=== PATIENT | female | born 1960 | race Caucasian/White ===

== ENCOUNTER → 2023-07-19 06:24 | Outpatient (REF) | payer OTHER, SELFPAY | LOC: HWCARD 06:24 | PROVIDERS: ATTENDING PHYSICIAN Physician Assistant Medical | DX: R94.31 Abnormal electrocardiogram [ECG] [EKG] (principal) | CPT/HCPCS: 93005 ==

== ENCOUNTER 2023-08-10 16:59 | Inpatient (IN) | payer OTHER, SELFPAY ==
[2023-08-10] VITALS (10 sets, daily range): BP systolic 115–160; BP diastolic 45–121; BMI 32.2; BMI 31.7
[2023-08-10] MEDS: ZOFRAN 4 MG IV (15:54)
--- NOTE | 2023-08-10 16:05 | ED.GENMED ---
History of Present Illness
General
Chief Complaint: Dizziness
Source: patient and spouse
Exam Limitations: none
Time Seen by Provider: 08/10/23 15:19
Travel History
Have you had any contact with someone who has COVID-19?: No
Do you have any symptoms of coronavirus? Fever > 100 degrees, chills, cough, shortness of breath, sore throat, loss of taste or smell, muscle aches, or headache?: No
History of Present Illness
History of Present Illness:
At about 2 PM patient had sudden onset of dizziness and vertigo. No history of same. Somewhat positional in nature. No headache or other neurologic symptoms noted by the patient or .
Past History
Past History
ED Past Medical History: HTN, Hypercholesterolemia and Other (Congenital hearing loss)
ED Past Surgical History: Bowel resection (Partial colon removed due to Intussusception 2010) and ( x3)
Social History
Tobacco: Non-smoker
Alcohol: Occasional
Personal:
Living: with family
Family History
Family History: Negative Diabetes, Hypertension, Early CAD, Asthma or Cancer
Review of Systems
Review of Systems
All Other Systems: Not applicable
Respiratory: Reports no symptoms
Cardiac: Reports no symptoms
Phy Exam
Physical Exam
Physical Exam:
GENERAL: Alert and oriented in no apparent distress
EYE: Orbits normal. Extraocular muscles intact. No obvious nystagmus
NECK: Supple, no carotid bruit
ENT: Pharynx without erythema
CARDIAC: Regular rate and rhythm without any obvious murmurs.
LUNGS: Clear breath sounds,normal
ABDOMEN: Soft, without focal tenderness or distention
NEUROLOGICAL: Alert and oriented , cranial nerves II through XII intact. Light touch intact. Upper extremity strength normal. No drift. Consistent decreased right leg raising of the right lower leg however plantar dorsiflexion of the foot intact
SKIN: Warm and dry, no rash or lesion, no discoloration, skin intact.
MUSCULOSKELETAL: No edema,no deformity.Good color
PSYCH: Normal and appropriate interaction.
Course
Orders/Labs/Results
Orders:
Orders
08/10/23 15:26
CT Head W/o Cont STROKE ALERT Urgent
Comment:
Reason For Exam: Vertigo/right leg weakness
CT Head/Neck Ang STROKE ALERT Urgent
Comment:
Reason For Exam: Vertigo/right leg weakness
IV Insert/Care/Rem.- Treatment PRN
08/10/23 15:48
EKG [Electrocardiogram (*1)] Urgent
Reason for Study: Vertigo / Dizzy
EKG- Treatment ONCE
Ondansetron Injectable [Zofran] 4 mg IV NOW STA
08/10/23 15:49
Basic Metabolic Panel Urgent
Complete Blood Count/With Diff Urgent
08/10/23 16:34
Tenecteplase [Tnkase] 19 mg Syringe [Syringe Non-Pump] 0 ml IV NOW
Provider explained risk/benefits to patient &/or caregiver?: Yes
Blood pressure: 160/121
08/10/23 16:47
PTT Urgent
Prothrombin Time Urgent
Abnormal Lab Results
08/10/23
15:49
WBC 12.3 H 10^3/uL
(4.8-10.8)
Abs Immat Gran (auto) 0.1 H 10^3/uL
(0-0.05)
Absolute Neuts (auto) 8.7 H 10^3/uL
(1.4-6.5)
BUN 21 H mg/dl
(7-17)
Glucose 177 H mg/dl
(70-99)
08/10/23 15:49
08/10/23 15:49
Vital Signs
Initial and Last Documented VS:
Initial Vital Signs
Temp Pulse Resp BP Pulse Ox
98.2 F 70 16 160/121 96
08/10/23 14:07 08/10/23 14:07 08/10/23 14:07 08/10/23 14:07 08/10/23 14:07
Last Documented Vital Signs
Temp Pulse Resp BP Pulse Ox
97.7 F 70 18 144/68 97
08/10/23 19:20 08/10/23 19:20 08/10/23 19:20 08/10/23 19:20 08/10/23 19:20
*Pulse Oximetry
Patient hypoxic: no
*EKG
Interpreted by ED Provider?: Yes
Interpretation: abnormal
Comparison EKG: changes noted
Heart Rate: 75
Rate: normal
Rhythm: sinus
[place]: normal axis
Interval: normal interval
QRS Pattern: normal QRS
Ischemia: non-specific ST changes
*Utility Worker Driver Interpretation
Rate: normal
Interpretation: normal
Heart Rate: 75
Rhythm: sinus
*Critical Care Note
Total Time (30-74mins, 75-104mins- exclusive of procedures): 45
Update Note
Update Note:
1600... Seen post CT. CT head and CT angio negative. Patient still has some weakness in the right leg with straight leg raising however good strength with dorsi and plantarflexion. Awaiting neurologic evaluation. Doubt TN K patient
There were multiple lengthy discussions with the patient and family concerning management. Discussed with neurology and radiology. There was a. We were contemplating stat MRI. However did not feel this could be done in a expeditious enough
fashion to then give thrombolytics if that was decided. Therefore the decision for thrombolytics based on clinical findings. Family was very 50:50 on this decision. It was noted patient had improved movement of the right leg and after a lengthy
discussion we decided to hold off on thrombolytics. Risk benefit of therapy was reviewed multiple times
ED Attending Note
-
Portions of this chart may have been created with voice recognition software.� Occasional wrong word or��sound alike� substitutions may have occurred due to the inherent limitations of voice recognition software.
Discharge Plan
Departure
Patient Disposition: Admit
Date of Disposition: 08/10/23
Time of Disposition: 16:35
Presentation/result/management discussed w/ accepting MD/DO: Neurology
Discharge Problem:
Severe vertigo, Right leg weakness, Possible CVA
Interventions
Interventions:
*Risk Screen - Suicide Last Done: 08/10/23 15:35
*General Assessment Last Done: 08/10/23 14:07
*Neglect/Abuse Screening Last Done: 08/10/23 15:35
ED- Fall Risk Assessment Last Done: 08/10/23 19:44
*ED COVID-19 Vaccine History Last Done: 08/10/23 14:07
*Nursing Disposition Last Done: 08/10/23 19:44
ED- Neurological Assessment Last Done: 08/10/23 15:35
ED- Cardiac Assessment Last Done: 08/10/23 19:44
ED Swallowing Screen Last Done: 08/10/23 17:20
Discharge Date and Time
Discharge Date/Time: 08/10/23 19:47
[2023-08-10 16:09] LABS: % Basophils 0.5 % (0-2); % Eosinophils 1.4 % (0-6); % Immature Granulocytes 0.5 % (0-0.5); % Lymphocytes 21.8 % (20.5-51.1); % Monocytes 4.7 % (1.7-9.3); % Neutrophils 71.1 % (42.2-75.2); Absolute Basophils 0.1 10^3/uL (0-0.2); Absolute Eosinophils 0.2 10^3/uL (0-0.7); Absolute Immature Granulocytes 0.1 10^3/uL (0-0.05); Absolute Lymphocytes 2.7 10^3/uL (1.2-3.4); Absolute Monocytes 0.6 10^3/uL (0.1-0.6); Absolute Neutrophils 8.7 10^3/uL (1.4-6.5); Hemoglobin 13.6 g/dL (12.0-16.0); Mean Corpuscular Volume 88.3 fL (81.0-99.0); Nucleated Red Blood Cells % 0 %; Platelet Count 308 10^3/uL (130-400); Red Blood Cell Count 4.53 10^6/uL (4.20-5.40); Red Cell Dist. Width 12.4 % (11.5-14.5); White Blood Cell Count 12.3 10^3/uL (4.8-10.8)
[2023-08-10 16:48] LABS: Blood Urea Nitrogen 21 mg/dl (7-17); Calcium 9.2 mg/dl (8.4-10.2); Carbon Dioxide 23 mmol/L (22-30); Chloride 106 mmol/L (98-107); Estimated Creatinine Clearance 57 ml/min; Glucose 177 mg/dl (70-99); Potassium 3.9 mmol/L (3.5-5.1); Sodium 137 mmol/L (135-145); eGFR > 60.00
[2023-08-10 17:12] LABS: INR 1.06; PT 13.6 Sec (11.4-14.6)
[2023-08-10 17:13] LABS: APTT 26.9 Sec (23.4-35.0)
--- NOTE | 2023-08-10 17:39 | HPS.HSE ---
Family Physician
-
Family Physician: Rekha Sommers PA-C
Chief Complaint
-
Dizziness
History of Present Illness
This is a 62-year-old female with past medical history of bilateral deafness since childhood, was arthritis status post right total knee arthroplasty, hypertension and hyperlipidemia presenting to the emergency department with acute onset of vertigo.
Patient apparently was in usual state of health up until this event without any symptoms whatsoever. This morning prior to coming to the emergency department while she was busy forming a daily home activities she suddenly cried out to her
complaining of dizziness, ataxia, blurry vision, and discomfort over right ear. She started vomiting due to dizziness. She stated that it felt the room was spinning around her and she was barely able to stand up. Was found to have supported her
and brought her to the emergency department.
Patient had a recent Abdominal surgery about 4 days ago. Otherwise has been asymptomatic. She denies any prior history of CVA, CAD, palpitations lightheadedness or dizziness. She denies any recent cough cold or flulike symptoms. Has been no
recent travels or sick contacts. She denies any recent episodes of weakness, numbness.
On arrival in the emergency department in addition to the nausea and vertigo symptoms patient was found to have the right lower extremity with some more difficulty raising the right leg compared to the left. She was in the window for TNK and this
was considered given concern for central vertigo with right-sided weakness. Show BP was elevated at 160/121 with vitals otherwise stable. CT of the head was negative for any bleed or acute stroke. CT angio showed no obstruction of the major
vessels. No mass effect noted. ECG with normal sinus rhythm at a rate of [address] or T wave changes. Her chemistries were unremarkable. CBC also unremarkable.
On repeat evaluation after obtaining the imaging studies the patient weakness improved markedly. He had no other focal neurological abnormalities. TNK was not administered and patient was then referred for telemetry admission.
Medical History
Past Medical History
Past Medical History: Reports HTN and Hypercholesterolemia
Past Surgical History: Reports Orthopedic
Social History
Unable to obtain full social history at this time due to: Other (deafness)
Tobacco: Non-smoker
Alcohol: Occasional
Drug: None
Personal:
Living: With Family
Employment: Disabled
Family History
Family History: Not pertinent
Allergies / Home Medications
Allergies reflects when Allergies were last updated in [facility].
Home Medications with original date entered in [facility]
Allergy/Medication List:
Allergies
Allergy/AdvReac Type Severity Reaction Status Date / Time
No Known Allergies Allergy Verified 08/10/23 14:11
Home Medications
acetaminophen 500 mg tablet (Tylenol Extra Strength) 500 mg PO DAILYPRN PRN mild pain 08/10/23
atorvastatin 20 mg tablet 20 mg PO DAILY 08/10/23
triamterene 37.5 mg-hydrochlorothiazide 25 mg tablet 1 tab PO QPM 08/10/23
Review of Systems
-
History Source: Patient and Family
Constitutional: Reports No Symptoms
EENT: Reports No Symptoms
Respiratory: Reports No Symptoms
Cardiac: Reports No Symptoms
Abdomen/GI: Reports No Symptoms
: Reports No Symptoms
Musculoskeletal: Reports No Symptoms
Skin: Reports No Symptoms
Neurological: Reports Dizzy
Endocrine: Reports No Symptoms
Hematologic/Lymphatic: Reports No Symptoms
Psych: Reports No Symptoms
Physical Exam
Vital Signs
Vital Signs
Temp Pulse Resp BP Pulse Ox
98.2 F 69 19 156/68 98
08/10/23 14:07 08/10/23 16:45 08/10/23 16:45 08/10/23 16:37 08/10/23 16:45
Physical Exam
General: Well Developed, Well Nourished and Appears in Distress
HEENT: NormoCephalic, Anicteric, Moist mucous membranes, Atraumatic, PERRLA and Neck Nontender
Respiratory: Clear
Cardiac: S1/S2 and Regular Rhythm
Breast: Deferred by me
GI: Soft
Rectal: Deferred by Provider
Genito-urinary: Deferred by me
Musculoskeletal: No Clubbing, No Cyanosis and No Edema
Skin: Warm and Dry
Neuro: AO x 3
Hematologic/Lymphatic: No Lymphadenopathy
Psych: Calm
Laboratory Results
-
08/10/23 15:49
08/10/23 15:49
Laboratory Results
PT 13.6 Sec (11.4-14.6) 08/10/23 16:47
INR 1.06 08/10/23 16:47
APTT 26.9 Sec (23.4-35.0) 08/10/23 16:47
Data Reviewed
-
CT Scan: Report Reviewed by me
Medical Tests (Nuc Med, Echo, EKG etc): Image Personally Visualized and interpreted
Lab Data: Labs Reviewed by me
Old Records: Reviewed
Impression/Plan
-
IMPRESSION:
PLAN:
1. Dizziness - Vertigo with concern for possible central cause. On my exam she had no new focal deficit. Strength was 5/5 in upper and lower extremities bilaterally with very mild weakness on the right relative to left. Sensation was normal.
CT head, CTA negative. Improving exam so not a candidate for TNK. Suspect BPPV given acute onset and severity of symptom without antecedent illness. Cannot rule out central vertigo entirely. Admitting for possible CVA. She passed the swallowing
eval. NIHSS = 0.
- telemetry and neurochecks q6.
- d/w neuro, given aspirin 325 and plavix 75 x 1 for now. To continue pending further testing
- continue home statin and bp medications
- echo in am
- cardiac labs and tsh in am
- mri w/o contrast urgent. If negative can attempt Nellie
- prn meclizine for now
- prn antiemetics
- neurology consulted and notified.
DVT PPX
[2023-08-10] MEDS: REGLAN 10 MG IV (17:44)
[2023-08-10] MEDS: ANTIVERT 25 MG PO (17:45)
[2023-08-10] MEDS: PLAVIX 75 MG PO (17:45)
[2023-08-10] MEDS: ASPIRIN 325 MG PO (17:45)
[2023-08-10] MEDS: LOVENOX 40 MG SC (20:34)
[2023-08-10] MEDS: LIPITOR 40 MG PO ×2 (20:34→22:53)
--- NOTE | 2023-08-10 21:34 | CON.NEURO4 ---
Consultation - Neurology 4
-
CONSULTING PHYSICIAN: Dr. Vargas
REFERRING PHYSICIAN: Dr. Harris
DICTATED BY: Dr. Vargas
DATE/TIME OF REQUEST: 08/10/23
DATE/TIME OF CONSULTATION: 08/10/23
Reason for Consultation: stroke alert
History of Present Illness:
62 year-old female with a history of htn, HLD and congenital hearing loss who is deaf and reads lips who presented to the ED after abrupt onset of severe vertigo with RLE weakness and RLE coordination difficulty that began suddenly at 1:45pm. No
prior history of stroke or vertigo. Initially radiology was called to facilitate stat MRI to clarify diagnosis as family was undecided regarding giving TNK; then MRI was cancelled as family agreed to TNK. However, family remained hesitant and her
symptoms greatly improved so TNK ultimately was not given. CTA was negative for any clot.
Past Medical History: htn, HLD, congenital hearing loss
Surgical History: bowel resection--partial colon resection due to intussusception in 2010; Csection x 3, R knee surgery
Family History: no clear family history of stroke
Social History: nonsmoker, occasional ETOH, , lives with family
Home Medications
Medication Instructions Recorded
acetaminophen 500 mg tablet 500 mg PO DAILYPRN PRN mild pain 08/10/23
(Tylenol Extra Strength)
atorvastatin 20 mg tablet 20 mg PO DAILY 08/10/23
cyanocobalamin (vitamin B-12) 1 tab PO .SEE BELOW 08/10/23
ibuprofen 200 mg tablet (Advil) 800 mg PO BIDPRN PRN mild pain 08/10/23
magnesium 1 tab PO .SEE BELOW 08/10/23
polyvinyl alcohol 1.4 % eye drops 1 drp BOTH EYES QID 08/10/23
triamterene 37.5 1 tab PO QPM 08/10/23
mg-hydrochlorothiazide 25 mg tablet
Allergies
No Known Allergies Allergy (Verified 08/10/23 14:11)
Review of Symptoms:
Patient denies any fever, headache, chest pain, shortness of breath, GI or symptoms.
�Per the HPI.�All systems are reviewed negative except above.
Vital Signs
Temp Pulse Resp BP Pulse Ox
97.7 F 70 18 144/68 97
08/10/23 19:20 08/10/23 19:20 08/10/23 19:20 08/10/23 19:20 08/10/23 19:20
Lab Results
08/10/23 15:49
08/10/23 15:49
PT 13.6 Sec (11.4-14.6) 08/10/23 16:47
INR 1.06 08/10/23 16:47
APTT 26.9 Sec (23.4-35.0) 08/10/23 16:47
Sodium 137 mmol/L (135-145) 08/10/23 15:49
Potassium 3.9 mmol/L (3.5-5.1) 08/10/23 15:49
BUN 21 mg/dl (7-17) H 08/10/23 15:49
Glucose 177 mg/dl (70-99) H 08/10/23 15:49
Calcium 9.2 mg/dl (8.4-10.2) 08/10/23 15:49
Physical Exam:
The patient is afebrile, heart sounds S1 and S2 are regular, and chest is clear to auscultation bilaterally.
NIH Stroke Scale :
I performed the NIH stroke scale on the patient on 08/10/23--my initial evaluation. The patient scored 3 points on the NIH stroke scale assessment, which were assigned as follows: 2 for motor function in RLE and 1 for RLE limb ataxia.
Neurologic Examination:
The patient is awake, alert and oriented x 3. and daughter provided assistance using sign language as she is deaf. She is able to follow commands and answer questions appropriately. No clear aphasia per family; unable to assess for
dysarthria. On cranial nerve assessment, pupils are 3 mm bilateral, round and reactive to light and accommodation. Visual mad[place] are full. Extraocular movements are intact. Facial sensations are intact and bilaterally symmetrical, there is no facial
asymmetry. Hearing is intact bilaterally to normal conversation volume. Tongue palate and uvula are midline. Sternocleidomastoid strengths are full bilaterally. Motor strengths are 4/5 in RLE, otherwise full strength. There is no drift or
involuntary movement noted. Deep tendon reflexes are 2+ bilateral upper and lower extremities and Babinski is absent bilaterally. Sensations of pain, touch, temperature and vibration are intact and bilaterally symmetrical. There was no extinction
noted on double simultaneous stimulation. Coordination was impaired in the RLE with heel to franks but was otherwise intact.
Neuro Imaging:
HCT:
'1.. No acute intracranial abnormality noted.
2. Calcified extra-axial left frontal convexity mass measuring up to 2.8 cm, likely meningioma. No midline shift or herniation.'
CTA head/neck: 'No significant vascular occlusion, aneurysm or dissection.'
Impression:
TRAVON BANGURA is a 62 year old F who has presented to the hospital with severe vertigo, RLE weakness and RLE ataxia. Initially the patient's family agreed to TNK. However, the latter two symptoms eventually improved and then TNK was not given.
Differentials for the patient's presentation include:
1. small posterior circulation stroke--now improved.
2. BPPV with some baseline predisposition to RLE weakness s/p knee surgery
Patient has the following risk factors for their symptoms:
IV Tenecteplase/IAT candidacy: TNK initially was to be given--family agreed, then not given after symptoms markedly improved, discussed at length with patient's and daughter; CTA negative for clot
Recommendations:
-check MRI brain without contrast to evaluate for stroke
-CTA already completed
-BP goal is normotension.
-Load with ASA 325mg daily and Plavix 75mg daily, then ASA 81mg/Plavix 75mg DAPT x 21 days total, then ASA 81mg daily indefinitely.
- Check hemoglobin A1C. Goal is normoglycemia.
- Please start the patient on atorvastatin 80 mg by mouth daily at bedtime. Check LDL. Goal LDL after stroke is <70.
- Check an echocardiogram.
-PT/OT/ST evaluations
- DVT prophylaxis
-continue neurochecks
-given Zofran for nausea, can give meclizine as needed for vertigo
Discussed patient care with: patient, patient's and daughter, nursing, Dr. Harris, Dr. Curiel, hospitalist
Critical care time 70 mins
[2023-08-10 23:22] LABS: HDL Cholesterol 48 mg/dl; LDL Cholesterol, Calculated 94 mg/dl; Total Cholesterol 168 mg/dl (50-199); Triglyceride 133 mg/dl (10-149); Very Low Density Lipoprotein 26 mg/dl (0-30)
[2023-08-11] VITALS (7 sets, daily range): BP systolic 119–154; BP diastolic 59–77; PULSE 72–77; O2SAT 96
[2023-08-11 07:32] LABS: Hematocrit 37.5 % (37.0-47.0); Hemoglobin 12.9 g/dL (12.0-16.0); Mean Corp Hgb Conc. 34.4 g/dL (33.0-37.0); Mean Corpuscular Hgb 30.4 pg (27.0-31.0); Mean Corpuscular Volume 88.2 fL (81.0-99.0); Platelet Count 316 10^3/uL (130-400); Red Blood Cell Count 4.25 10^6/uL (4.20-5.40); Red Cell Dist. Width 12.4 % (11.5-14.5)
[2023-08-11 08:01] LABS: Erythrocyte Sed Rate 7 mm/hour (0-20)
[2023-08-11 08:09] LABS: Blood Urea Nitrogen 20 mg/dl (7-17); Calcium 8.9 mg/dl (8.4-10.2); Carbon Dioxide 24 mmol/L (22-30); Chloride 107 mmol/L (98-107); Estimated Creatinine Clearance 73 ml/min; Glucose 82 mg/dl (70-99); HDL Cholesterol 45 mg/dl; LDL Cholesterol, Calculated 81 mg/dl; Magnesium 2.3 mg/dl (1.6-2.3); Potassium 3.7 mmol/L (3.5-5.1); Sodium 139 mmol/L (135-145); Total Cholesterol 161 mg/dl (50-199); Triglyceride 176 mg/dl (10-149); Very Low Density Lipoprotein 35 mg/dl (0-30); eGFR > 60.00
[2023-08-11] MEDS: DYAZIDE 1 CAPSULE PO (08:47)
[2023-08-11] MEDS: ASPIR LOW (ENTERIC COATED) 81 MG PO (08:48)
[2023-08-11] MEDS: PLAVIX 75 MG PO (08:48)
[2023-08-11] MEDS: ANTIVERT 25 MG PO ×2 (09:01→21:22)
--- NOTE | 2023-08-11 10:03 | PTOTSP ---
ST Evaluation
Oropharyngeal function appears intact at the bedside. Cog/language at reported baseline
Pt received awake/alert at the bedside. and daughter present assisting with ASL interpretation. Per family pt language/cognition at baseline.
Self fed trials of regular solids/thin liquids. Demo functional mastication and bolus was orally cleared. Thin liquids by straw serial sips swallow appears prompt. No overt s/sx of aspiration observed
Recommend
1. Continue regular solids/thin liquids
2. Meds oral with sips of water
3. No further acute ADULT MANAGER needs. ADULT MANAGER signing off please reconsult as needed
[2023-08-11 10:44] LABS: Glycohemoglobin (HgbA1c) 5.7 % (4.0-5.6)
--- NOTE | 2023-08-11 11:39 | W.PN.HOSP.TC ---
Today's Communication/Plan
-
Monitor vital signs
see plan
MRI pending
PT/OT
Continue aspirin, Plavix
Neurology following
Assessment / Plan
Assessment / Plan
General: Well Developed, Well Nourished and Appears in Distress
HEENT: NormoCephalic, Anicteric
Respiratory: Clear, no wheezing
Cardiac: S1/S2 and Regular Rhythm
GI: Soft, nontender, nondistended
Musculoskeletal: No Edema
Neuro: AO x 3
Psych: Calm
Acute onset Vertigo
r/o CVA
Initially plan was to give TNK however family was initially hesitant and since patient symptoms improved TNK was canceled.
CT head without acute CVA, calcified extra axial left frontal convexity mass could be likely meningioma. No midline shift or herniation
Neurology following
MRI pending
If MRI negative then would benefit from vestibular therapy
Continue with aspirin, Plavix
cw neuro checks
Deaf at baseline but can read lips
cw statin
echo
A1c 5.7 which is consistent with prediabetes, monitor
Meclizine was given 08/09 outpatient did not improve
- prn antiemetics
- neurology following
hx of HTN
cw HCTZ/triamterene
DVT prophylaxis
Lovenox
Full code
Anticipated Discharge: Within 24 hours
Subjective/Interval History
-
Date of Service: August 11, 2023
still has vertigo
Objective Data
-
Labs:
Laboratory Results
08/11/23
06:27
WBC 12.0 H
Hgb 12.9
Hct 37.5
Plt Count 316
Sodium 139
Potassium 3.7
Chloride 107
Carbon Dioxide 24
BUN 20 H
Creatinine 0.7
Glucose 82
Calcium 8.9
Vital Signs:
Vital Signs
Temp Pulse Resp BP Pulse Ox
98.3 F 80 16 147/72 95
08/11/23 07:39 08/11/23 07:39 08/11/23 07:39 08/11/23 07:39 08/11/23 07:39
I&O
08/10/23 08/11/23 08/12/23
06:59 06:59 06:59
Intake Total 120 / 120
Balance 120 / 120
--- NOTE | 2023-08-11 12:24 | CM ---
Reviewed chart, attempted to meet with patient to obtain information for assessment however she was not in room. Placed a call to patient's spouse however there was no answer. Left a voice mail message and encouraged return call.
Plan: Case management will continue to follow and assist with discharge planning. Will f/u again with patient/family to obtain information for assessment.
--- NOTE | 2023-08-11 15:37 | W.PN.NEURO.1 ---
Addendum entered and electronically signed by Evonne Vargas DO 08/11/23 19:38:
Stoped DAPT and lowered statin back to outpatient dosing.
Original Note:
Today's Communication / Plan
-
Valium IV
Neuro Assessment/Plan
Assessment
TRAVON BANGURA is a 62 year old F who has presented to the hospital with severe vertigo, RLE weakness and RLE ataxia; RLE weakness has resolved. Severe vertigo and some difficulty with heel to franks in the RLE persists. MRI brain negative for
stroke. Symptoms likely due to BPPV with some baseline predisposition to RLE weakness s/p knee surgery.
MRI brain:
No acute intracranial abnormality noted.
Left lateral convexity extra-axial calcified meningioma measures up to 3.2 cm.
Plan
Recommendations:
-given Zofran for nausea, can give meclizine as needed for vertigo
-try Valium 2mg IV now for severe vertigo
-needs outpatient ENT evaluation
-meningioma noted on imaging; needs outpatient nsx evaluation
Neurology will follow as needed. Please call with any questions.
Subjective/Objective
Subjective Data
Date of Service: August 11, 2023
rle weakness resolved, still with severe vertigo and some difficulty with RLE heel to franks
Objective Data
Vital Signs
Temp Pulse Resp BP Pulse Ox
97.8 F 77 16 141/70 94
08/11/23 11:45 08/11/23 11:45 08/11/23 11:45 08/11/23 11:45 08/11/23 11:45
Lab Results
08/11/23 06:27
08/11/23 06:27
PT 13.6 Sec (11.4-14.6) 08/10/23 16:47
INR 1.06 08/10/23 16:47
APTT 26.9 Sec (23.4-35.0) 08/10/23 16:47
Sodium 139 mmol/L (135-145) 08/11/23 06:27
Potassium 3.7 mmol/L (3.5-5.1) 08/11/23 06:27
BUN 20 mg/dl (7-17) H 08/11/23 06:27
Glucose 82 mg/dl (70-99) 08/11/23 06:
Calcium 8.9 mg/dl (8.4-10.2) 08/11/23 06:
LDL Cholesterol, Calc 81 mg/dl 08/11/23 06:27
Patient Allergies
No Known Allergies Allergy (Verified 08/10/23 14:11)
Physical Exam
-
The patient is awake, alert and oriented x 3. and daughter provided assistance using sign language as she is deaf. She is able to follow commands and answer questions appropriately. No clear aphasia per family; unable to assess for
dysarthria. On cranial nerve assessment, pupils are 3 mm bilateral, round and reactive to light and accommodation. Visual mad[place] are full. Extraocular movements are intact. Facial sensations are intact and bilaterally symmetrical, there is no facial
asymmetry. Hearing is intact bilaterally� to normal conversation volume. Tongue palate and uvula are midline. Sternocleidomastoid strengths are full bilaterally. Motor strengths are full. There is no drift or involuntary movement noted. Deep tendon
reflexes are 2+ bilateral upper and lower extremities and Babinski is absent bilaterally. Sensations of touch, temperature are intact and bilaterally symmetrical. There was no extinction noted on double simultaneous stimulation. Coordination was
impaired in the RLE with heel to franks but was otherwise intact.
General: Well Developed and Well Nourished
[2023-08-11] MEDS: VALIUM INJECTION 2 MG IV (15:55)
[2023-08-11] MEDS: LIPITOR 80 MG PO (17:16)
[2023-08-11] MEDS: LOVENOX 40 MG SC (17:16)
[2023-08-12] VITALS (7 sets, daily range): BP systolic 125–161; BP diastolic 61–93; PULSE 79–120; O2SAT 94
[2023-08-12 07:23] LABS: % Eosinophils 2.6 % (0-6); % Immature Granulocytes 0.3 % (0-0.5); % Lymphocytes 29.2 % (20.5-51.1); % Monocytes 6.9 % (1.7-9.3); Absolute Basophils 0.1 10^3/uL (0-0.2); Absolute Eosinophils 0.2 10^3/uL (0-0.7); Absolute Lymphocytes 2.7 10^3/uL (1.2-3.4); Absolute Monocytes 0.6 10^3/uL (0.1-0.6); Absolute Neutrophils 5.6 10^3/uL (1.4-6.5); Hematocrit 41.7 % (37.0-47.0); Mean Corp Hgb Conc. 33.6 g/dL (33.0-37.0); Mean Corpuscular Hgb 29.9 pg (27.0-31.0); Mean Corpuscular Volume 89.1 fL (81.0-99.0); Mean Platelet Volume 9.9 fL (7.4-10.4); Nucleated Red Blood Cells % 0 %; Platelet Count 323 10^3/uL (130-400); Red Blood Cell Count 4.68 10^6/uL (4.20-5.40); Red Cell Dist. Width 12.5 % (11.5-14.5); White Blood Cell Count 9.3 10^3/uL (4.8-10.8)
[2023-08-12 07:40] LABS: Blood Urea Nitrogen 24 mg/dl (7-17); Calcium 9.2 mg/dl (8.4-10.2); Carbon Dioxide 26 mmol/L (22-30); Chloride 105 mmol/L (98-107); Estimated Creatinine Clearance 73 ml/min; Glucose 93 mg/dl (70-99); Potassium 3.8 mmol/L (3.5-5.1); Sodium 138 mmol/L (135-145); eGFR > 60.00
[2023-08-12] MEDS: DYAZIDE 1 CAPSULE PO (07:57)
[2023-08-12] MEDS: ANTIVERT 25 MG PO (08:02)
--- NOTE | 2023-08-12 10:19 | W.PN.HOSP.TC ---
Addendum entered and electronically signed by Steven Granger MD 08/12/23 15:15:
Case discussed with Dr. Restrepo and he has cleared the patient for discharge from a cardiac standpoint. She did have some brief SVT. She will be set up with a 2-week monitor after discharge.
Total time spent on d/c = 34 min. This included today's physical exam, progress note, review of laboratory and diagnostic data, preparation of discharge documents and prescriptions, and discussions about the pt's hospital course and discharge plan
with the patient and other medical technologist clinical involved in the patient's care.
Original Note:
Today's Communication/Plan
-
d/c
Assessment / Plan
Assessment / Plan
Gen: NAD, Awake and alert
Eyes: EOMI, PERRLA, no scleral icterus.
Neck: supple.
CV: RRR, +S1/S2, no m/r/g.
Resp: CTAB, no rales, wheezes, or rhonchi.
Abd: +BS, soft, NT, ND
Skin: No rashes.
Neuro: CN 2-12 intact, non-focal.
Psych: Normal mood and affect.
MRI brain: No acute intracranial abnormality noted.
Acute onset Vertigo:
-initially plan was to give TNK however family was initially hesitant and since patient symptoms improved TNK was canceled.
-CT head without acute CVA, calcified extra axial left frontal convexity mass could be likely meningioma. No midline shift or herniation.
-MRI without acute CVA/findings
-Neurology saw in consultation. Nothing further to do from their standpoint. Aspirin and Plavix have been stopped.
-It appears the patient had a brief run of SVT on telemetry. Will consult cardiology.
-echo done, read pending
-start IVFs for now
-check official orthostatic VS (and document in [facility])
Essential HTN:
-cont HCTZ/triamterene
FULL/Lovenox
Anticipated Discharge: Today
Subjective/Interval History
-
Date of Service: August 12, 2023
Patient reports she still has sensation of vertigo when she sits up. As per the patient's family orthostatic vital signs were checked and her blood pressure dropped about 30 points (I do not see this documented in the computer).
Objective Data
-
Labs:
Laboratory Results
08/12/23
06:41
WBC 9.3
Hgb 14.0
Hct 41.7
Plt Count 323
Sodium 138
Potassium 3.8
Chloride 105
Carbon Dioxide 26
BUN 24 H
Creatinine 0.7
Glucose 93
Calcium 9.2
Vital Signs:
Vital Signs
Temp Pulse Resp BP Pulse Ox
97.7 F 80 18 152/68 94
08/12/23 07:00 08/12/23 07:57 08/12/23 07:00 08/12/23 07:57 08/12/23 07:00
I&O
08/11/23 08/12/23 08/13/23
06:59 06:59 06:59
Intake Total 120 / 120 500 / 500
Balance 120 / 120 500 / 500
--- NOTE | 2023-08-12 11:29 | CM ---
Addendum entered by Karissa Kaba 08/12/23 16:19:
Vestibular therapy recommended by attending
Bedside meeting and family
They want outpt therpay and no longer want [facility]
Hard script requested and update to VN
They have an appt with [facility] on Sat
Original Note:
CM met with pt, spouse and two adult children (Lavon and Kelsi) bedside
Pt is deaf and family interpreted ASL throughout meeting
Pt and spouse reside with their two adult children in a 2SH with 2STE
Full flight to 2nd floor full bathroom, powder room on
Pt is independent without use of ADs
Believes she has a WW from prior knee surgery at home
No hx with VN/SNF
PCP- Rekha Sommers
Rx- [facility]
Discussion with PT and VN recommended with family support
Discharging planning discussed
Adult children rn social work and will be available to assist spouse with care
Plan for 1st floor setup, family declined additional DMEs
They will move bed downstairs and position near powder room
Dtr will check to ensure WW is at home, will contact CM if WW is needed on dc
VN providers discussed- referral made to [facility]
Family feels comfortable transporting home on dc
VN order requested
Discharge Disposition- home with VN ([facility] pending)- family transport
[2023-08-12] MEDS: NSS 1000 IV (13:12)
--- NOTE | 2023-08-12 13:14 | VNURNOTE ---
Home Health Liaison met with patient's spouse Jimbo at 1200 to discuss [facility] nurse/therapy, visits, schedule and homebound status. Jimbo is agreeable and understands that visits at home will be 2-3 x per week to assess and teach medical management.
[facility] brochure provided with contact information. Jimbo is aware that [facility] will contact them for start of care in 1-2 days after discharge from .
[facility] referral completed in [facility].
--- NOTE | 2023-08-12 13:21 | CON.CAR ---
Addendum entered and electronically signed by Brennan Restrepo MD 08/12/23 15:27:
62 yo female with HTN, deafness admitted with dizziness. Thought to be due to BPPV. There is no syncope. Exam with RRR, no murmurs, no edema. Tele: 5 seconds paroxysmal SVT (asymptomatic). Echo: normal.
We will arrange for a 2 week monitor for her SVT. She has follow up with us in August. Please call us back with additional questions.
Original Note:
Consultation
Consultation Request
Date/Time Consultation Requested: 08/12/23 1127
Date/Time Consultation Performed: 08/12/23 1300
Requesting Provider: Dr. Granger
Performing Provider: Mary BOOTH for Dr. Restrepo
Reason for Consultation: SVT
Medical History
-
Chief Complaint: dizziness
History of Present Illness:
62 y/o female with hypertension, dyslipidemia, and deafness who is here for evaluation of acute onset dizziness. She is diagnosed with vertigo. We are consulted since SVT noted on monitor. Denies palpitations. Still gets vertigo symptoms with
position change, turning head etc. Some orthostatic BP's also noted and is receiving IV fluids. She is in no distress at the time of my assessment. Family is present and helps us communicate effectively.
Past Medical History
Past Medical History: HTN, Hypercholesterolemia and Other (deafness)
Social History
Tobacco: Non-Smoker
Alcohol: Occasional (wine on Saturday)
Personal:
Living: With Family
Family History
Family History: Reviewed & Not Pertinent (dad may have had 'heart disease', but details unknown)
Allergies / Home Medications
Allergy/AdvReac Type Severity Reaction Status Date / Time
No Known Allergies Allergy Verified 08/10/23 14:11
Medication Instructions Recorded Confirmed Type
acetaminophen 500 mg tablet 500 mg PO DAILYPRN PRN mild pain 08/10/23 08/10/23 History
(Tylenol Extra Strength)
atorvastatin 20 mg tablet 20 mg PO DAILY High Cholesterol 08/10/23 08/10/23 History
cyanocobalamin (vitamin B-12) 1 tab PO .SEE BELOW 08/10/23 08/10/23 History
Supplement
ibuprofen 200 mg tablet (Advil) 800 mg PO BIDPRN PRN mild pain 08/10/23 08/10/23 History
magnesium 1 tab PO .SEE BELOW 08/10/23 08/10/23 History
Supplement
polyvinyl alcohol 1.4 % eye drops 1 drp BOTH EYES QID Eye Condition 08/10/23 08/10/23 History
triamterene 37.5 1 tab PO QPM Blood Pressure 08/10/23 08/10/23 History
mg-hydrochlorothiazide 25 mg tablet
Review of Systems
-
History Source: Patient
All other systems: Negative unless noted
Neurological: Dizzy
Physical Exam
Vital Signs
Temp Pulse Resp BP Pulse Ox
98.6 F 81 16 125/68 95
08/12/23 11:15 08/12/23 11:15 08/12/23 11:15 08/12/23 11:15 08/12/23 11:15
Lab Results
08/12/23 06:41
08/12/23 06:41
Physical Exam
General: Well Developed, Well Nourished and No Apparent Distress
HEENT: Normocephalic and Anicteric
Respiratory: Clear and Non Labored Respirations
Cardiac: Regular Rhythm
Breast: Deferred by me
Skin: Warm and Dry
Neuro: AO x 3
Psych: Calm
Impression / Plan
-
Vertigo:
-neurology saw patient and suspects BPPV and recommended meclizine PRN, as well as ENT follow-up as OP. Meningioma noted on imaging and neuro recommends neurosurg eval as OP as well.
-still having some symptoms of this with change in head position. Currently laying and no symptoms.
-management per primary team
Orthostatic hypotension:
-reported earlier today
-resolved s/p IVF
pSVT:
-brief run this AM about 4.5 seconds. No palps.
-recommended OP monitor (2 week), and follow-up with Dr. Garcia as planned. Our office will call to arrange.
Abnormal EKG:
-non-specific changes
-no CP or SOB and exercises without difficulty normally
-can f/u with Dr. Garcia as OP as planned
HTN:
-on chronic medical therapy
Dyslipidemia:
-on statin
Data Reviewed
-
EKG: Tracing Personally Visualized and interpreted
MRI: Report Reviewed by me (MRI 08/11/23: No acute intracranial abnormality noted. Left lateral convexity extra-axial calcified meningioma measures up to 3.2 cm.)
Medical Tests (Nuc Med, Echo etc): Report Reviewed by me (echo 08/12/23: Normal biventricular size and systolic function without regional wall motion abnormality. Estimated LVEF 55-60%. No significant valve disease. Trivial pericardial effusion.)
Labs: Labs Reviewed by me
[2023-08-12 14:51] LABS: TSH Reflex To Free T4 1.48 uIU/ml (0.47-4.68)
--- NOTE | 2023-08-15 16:33 | W.DCSUMMARY ---
Discharge Summary
Discharge Data
Date of Admission: 08/10/23
Date of Discharge: 08/15/23
-
Pending Results: No
Hospital Course
Primary diagnoses:
Acute vertigo
Secondary diagnoses:
Nonsustained supraventricular tachycardia
Essential hypertension
Consultants:
Cardiology
Neurology
Imaging:
MRI brain: No acute intracranial abnormality noted.
Hospital course: 62-year-old female who presented with chief complaint of dizziness as outlined in the H&P done on admission. Initially the plan was to give TNK however family was initially hesitant and since patient symptoms improved TNK was
canceled. CT head showed no acute CVA, calcified extra axial left frontal convexity mass could be likely meningioma.� No midline shift or herniation. MRI of the brain was with out acute CVA. Neurology saw the patient in consultation. They did not
have any further recommendations from their standpoint. The patient had been started on aspirin and Plavix which were stopped. Patient did have a brief run of SVT on telemetry. Echocardiogram above. Patient was seen in consultation by cardiology
and they recommended an outpatient monitor. The patient was discharged in medically stable condition.
Discharge Plan
-
Patient Disposition: Home (Routine Discharge)
Discharge Diagnosis/Procedures: Vertigo
Condition: Good
Diet: Other diet
Additional Diets: heart healthy
Activity: With assistance
Driving Restrictions: Not until seen by your Dr
Others Tests: 2 week monitor- Cardiology (Dr. Garcia's) office will call you to arrange. [phone].
Referrals:
Rekha Sommers PA-C [Family Provider] - in less than 1 week
Rosas Garcia MD [Active] - 09/11/23 11:20 am (As previously scheduled)
Prescriptions:
New
meclizine 25 mg Tablet
25 mg PO Q8HPRN PRN (Reason: vertigo) Qty: 21 0RF
Continued
atorvastatin 20 mg Tablet
20 mg PO DAILY
polyvinyl alcohol 1.4 % Drops
1 drp BOTH EYES QID
acetaminophen [Tylenol Extra Strength] 500 mg Tablet
500 mg PO DAILYPRN PRN (Reason: mild pain)
ibuprofen [Advil] 200 mg Tablet
800 mg PO BIDPRN PRN (Reason: mild pain)
triamterene-hydrochlorothiazid 37.5-25 mg Tablet
1 tab PO QPM
cyanocobalamin (vitamin B-12)
1 tab PO .SEE BELOW
Patient Comments:
08/10/2023, spouse unsure of dose and whether taken in morning or evening. Taken once a day per spouse.
magnesium
1 tab PO .SEE BELOW
Patient Comments:
08/10/2023, spouse unsure of dose and whether taken in morning or evening. Taken once a day per spouse.
Discharge Orders:
Discharge Patient (As Directed); Ordered 08/12/23
Ordered By: Steven Granger
Discharge Date and Time
Discharge Date/Time: 08/12/23 17:39
== END 2023-08-12 17:39 | disposition home or self-care (01) | DRG 149 ==
LOC: 3 WEST ACU 16:59
PROVIDERS: Internal Medicine; ADMITTING PHYSICIAN Internal Medicine; ATTENDING PHYSICIAN Internal Medicine; CONSULT PHYSICIAN Psychiatry & Neurology Neurology; EMERGENCY PHYSICIAN Emergency Medicine; FAMILY PHYSICIAN Physician Assistant Medical; OTHER PHYSICIAN Internal Medicine
DX: R42 Dizziness and giddiness (principal); I47.10 Supraventricular tachycardia, unspecified; R29.700 NIHSS score 0; I10 Essential (primary) hypertension; E78.00 Pure hypercholesterolemia, unspecified
CPT/HCPCS: 70450; 70496; 70498; 70553; 80048; 80061; 83036; 83735; 84443; 85025; 85027; 85610; 85652; 85730; 92610; 93005; 93306; 96374; 96375; 97116; 97163; 97167; 97530; 99291; A9575; J3101; Q9967

== ENCOUNTER 2023-08-14 08:24 | Outpatient (RCR) | payer OTHER, SELFPAY | END 2023-08-14 23:59 | disposition home or self-care (01) | LOC: RPT 08:24 | PROVIDERS: ATTENDING PHYSICIAN Internal Medicine; FAMILY PHYSICIAN Physician Assistant Medical | DX: R42 Dizziness and giddiness (principal); Z73.6 Limitation of activities due to disability; H91.93 Unspecified hearing loss, bilateral | CPT/HCPCS: 97163 ==

== ENCOUNTER 2023-10-31 13:28 | Emergency (ER) | payer MEDICARE, OTHER, SELFPAY ==
[2023-10-31 13:45] VITALS: BP 166/83
--- NOTE | 2023-10-31 13:52 | ED.PDOC.TRB ---
ED Provider Triage
-
Patient seen by provider in Triage?: Seen in Triage
62-year-old female presenting the ER after swallowing a bridge/dental implant that she had placed previously. She denies any respiratory complaints or pain. Dental implant missing from the right lower jaw. Patient is in no respiratory distress.
X-rays ordered. Anticipate patient will be able to be discharged home following this.
--- NOTE | 2023-10-31 14:59 | ED.GENMED ---
History of Present Illness
General
Chief Complaint: Foreign Body Ingestion
Source: patient and spouse
Time Seen by Provider: 10/31/23 14:59
Travel History
Have you had any contact with someone who has COVID-19?: No
Do you have any symptoms of coronavirus? Fever > 100 degrees, chills, cough, shortness of breath, sore throat, loss of taste or smell, muscle aches, or headache?: No
History of Present Illness
History of Present Illness:
62-year-old female presenting to the emergency department with spouse stating that patient accidentally swallowed a dental bridge earlier this morning. They were concerned that this could cause problems so decided to come to the ER for further
evaluation. Patient denies any abdominal pain, difficulty breathing or any other concerns presently.
Past History
Past History
ED Past Medical History: HTN, Hypercholesterolemia and Other (Congenital hearing loss)
ED Past Surgical History: Bowel resection (Partial colon removed due to Intussusception 2010) and ( x3)
Social History
Tobacco: Non-smoker
Alcohol: Occasional
Drug: None
Personal:
Living: with family
Family History
Family History: Negative Diabetes, Hypertension, Early CAD, Asthma or Cancer
Review of Systems
Review of Systems
All Other Systems: ROS reviewed and negative except as documented in HPI and ROS
Phy Exam
Physical Exam
Physical Exam:
GENERAL: Alert , in no apparent distress
EYE: conjunctiva clear
Head: Normocephalic atraumatic
NECK: Supple,
ENT: mmm.
LUNGS: no acute respiratory distress
Abdomen: Soft, nontender, nondistended
NEUROLOGICAL: Alert and oriented
SKIN: Warm and dry, skin intact.
MUSCULOSKELETAL: well perfused.
PSYCH: Normal and appropriate interaction.
Scores
Heart Failure Risk
Heart Failure Risk Score: Not Applicable
Heart Score for Chest Pain Patients
STEMI patient?: Not applicable
Withdrawal Assessment of Alcohol
Withdrawal Assessment Completed?: Not applicable
Course
Orders/Labs/Results
Orders:
Orders
10/31/23 13:51
Abdomen Xray - 1 View [CR Abdomen - 1 View] Urgent
Comment:
Reason For Exam: swallowed bridge
CR Chest Single View Urgent
Reason For Exam: swallowed dental bridge
Vital Signs
Initial and Last Documented VS:
Initial Vital Signs
Temp Pulse Resp BP Pulse Ox
98.0 F 80 16 166/83 98
10/31/23 13:45 10/31/23 13:45 10/31/23 13:45 10/31/23 13:45 10/31/23 13:45
Last Documented Vital Signs
Temp Pulse Resp BP Pulse Ox
98.0 F 80 16 166/83 98
10/31/23 13:45 10/31/23 13:45 10/31/23 13:45 10/31/23 13:45 10/31/23 13:45
MDM/Problems Addressed
MDM/Problems Addressed:
62-year-old female presenting emergency department for evaluation after she excellently swallowed a dental bridge. No evidence for respiratory distress. No abdominal pain and abdominal exam is reassuring. X-rays of the chest and abdomen and
pelvis were ordered which show the foreign body within the right lower portion of the abdomen. No further emergent care needed as this will likely pass through the rest of her GI tract without difficulty. Aware of return precautions. Stable for
discharge home.
*Radiology
Radiology exam reviewed: preliminary read by ED provider (Foreign body within alimentary tract but without any complications)
*Pulse Oximetry
Patient hypoxic: no
*Critical Care Note
Total Time (30-74mins, 75-104mins- exclusive of procedures): Not Applicable
ED Attending Note
-
Portions of this chart may have been created with voice recognition software.� Occasional wrong word or��sound alike� substitutions may have occurred due to the inherent limitations of voice recognition software.
Discharge Plan
Departure
Patient Disposition: Home (Routine Discharge)
Date of Disposition: 10/31/23
Time of Disposition: 15:00
Patient with high blood pressure during this ER visit?: Yes
Discharge Problem:
Swallowed foreign body
Instructions: Swallowed Objects, Adult (DC)
Prescriptions:
No Action
atorvastatin 20 mg Tablet
20 mg PO DAILY
polyvinyl alcohol 1.4 % Drops
1 drp BOTH EYES QID
acetaminophen [Tylenol Extra Strength] 500 mg Tablet
500 mg PO DAILYPRN PRN (Reason: mild pain)
ibuprofen [Advil] 200 mg Tablet
800 mg PO BIDPRN PRN (Reason: mild pain)
triamterene-hydrochlorothiazid 37.5-25 mg Tablet
1 tab PO QPM
cyanocobalamin (vitamin B-12)
1 tab PO .SEE BELOW
Patient Comments:
08/10/2023, spouse unsure of dose and whether taken in morning or evening. Taken once a day per spouse.
magnesium
1 tab PO .SEE BELOW
Patient Comments:
08/10/2023, spouse unsure of dose and whether taken in morning or evening. Taken once a day per spouse.
meclizine 25 mg Tablet
25 mg PO Q8HPRN PRN (Reason: vertigo) Qty: 21 0RF
Referrals:
Rekha Sommers PA-C [Family Provider] -
Interventions
Interventions:
*ED COVID-19 Vaccine History Last Done: 10/31/23 13:45
Discharge Date and Time
Print Language: MALAY
== END 2023-10-31 15:14 | disposition home or self-care (01) ==
LOC: EMR 13:28
PROVIDERS: EMERGENCY PHYSICIAN Emergency Medicine; FAMILY PHYSICIAN Physician Assistant Medical
DX: T18.9XXA Foreign body of alimentary tract, part unspecified, initial encounter (principal); W44.8XXA Other foreign body entering into or through a natural orifice, initial encounter; I10 Essential (primary) hypertension; E78.00 Pure hypercholesterolemia, unspecified; H90.5 Unspecified sensorineural hearing loss
CPT/HCPCS: 99283; 71045; 74018

== ENCOUNTER → 2023-11-19 12:57 | Outpatient (REF) | payer MEDICARE, OTHER, SELFPAY | LOC: RAD 12:57 | PROVIDERS: ATTENDING PHYSICIAN Internal Medicine | DX: M25.511 Pain in right shoulder (principal) | CPT/HCPCS: 73030 ==

== ENCOUNTER → 2024-01-02 06:59 | Outpatient (REF) | payer MEDICARE, OTHER, SELFPAY | LOC: MRI 06:59 | PROVIDERS: ATTENDING PHYSICIAN Orthopaedic Surgery; FAMILY PHYSICIAN Physician Assistant Medical | DX: M67.911 Unspecified disorder of synovium and tendon, right shoulder (principal) | CPT/HCPCS: 73221 ==

== ENCOUNTER 2024-01-12 17:55 | Inpatient (IN) | payer MEDICARE, OTHER, SELFPAY ==
[2024-01-12] VITALS (11 sets, daily range): BP systolic 152–194; BP diastolic 58–98; BMI 33.0
--- NOTE | 2024-01-12 15:18 | ED.CVA ---
History of Present Illness
General
Chief Complaint: CVA/TIA Symptoms
Source: patient, spouse and family
Time Seen by Provider: 01/12/24 14:59
Onset of Stroke Symptoms
Onset of symptoms known: Yes
Date of onset of symptoms: 01/12/24
History of Present Illness
History of Present Illness:
This is 63-year-old female with a history of hypertension. She is hearing impaired with congenital deafness. Patient presents after she reported left facial numbness to her . Her then noticed that her left arm looked weak. He
thought he noticed an asymmetry of her face. Symptoms began around 2:25 PM. Patient has had possible vertigo in the past and they were worried about a stroke in the past but turned out to be not a stroke. She denies dizziness. She is unclear and
unsure if the symptoms are similar to her previous presentation. No fall. No injury.
Past History
Past History
ED Past Medical History: HTN, Hypercholesterolemia and Other (Congenital hearing loss)
ED Past Surgical History: Bowel resection (Partial colon removed due to Intussusception 2010) and ( x3)
Social History
Tobacco: Non-smoker
Alcohol: Occasional
Drug: None
Personal:
Living: with family
Family History
Family History: Negative Diabetes, Hypertension, Early CAD, Asthma or Cancer
Phy Exam
Physical Exam
Physical Exam:
CONSTITUTIONAL Patient alert and oriented to person, place and time. Well-appearing. Vital signs reviewed.
HEAD atraumatic, normocephalic.
EYES eyelids normal to inspection, Pupils equally round and reactive to light, Extraocular muscles intact, Conjunctiva normal, Sclera normal.
NECK normal range of motion, Trachea midline, no jugular venous distention.
RESPIRATORY CHEST No respiratory distress noted, Chest expansion equal, Bilateral breath sounds clear.
CARDIOVASCULAR regular rate and rhythm, Heart sounds normal.
BACK normal inspection, no obvious deformities
UPPER EXTREMITY range of motion normal, no cyanosis, no edema.
LOWER EXTREMITY range of motion normal, no cyanosis, no edema.
NEURO congenital deafness noted but patient is able to communicate and read lips. No receptive aphasia noted. Question very slight left upper extremity pronator drift but able to hold against gravity well. Noted ataxia to the left upper
extremity. Slight left facial droop. Left lower extremity is able to be held against gravity
SKIN skin warm, dry, and normal in color.
PSYCHIATRIC patient oriented to person place and time, Normal affect.
Scores
NIH Stroke Score
Level of Consciousness: 0 - Alert
LOC Questions: 0-Answers both correctly
LOC Commands: 0-Performs both correctly
Best Horizontal Gaze: 0-Normal
Visual [place]: 0=Normal, no visual loss
Facial Palsy: 1=Minor paralysis
Motor - Right Arm: 0=No drift 10 seconds
Motor - Left Arm: 1=Drift < 10 seconds
Motor - Right Le-No drift 5 seconds
Motor - Left Le-No drift 5 seconds
Limb Ataxia: 1-Present in one limb
Sensation: 1-Mild loss
Best Language: 0-No aphasia
Dysarthria: 0-Normal
Extinction and Inattention: 0-No abnormality
Total Score:: 4
Course
Orders/Labs/Results
Orders:
Orders
01/12/24 Lunch
Cholesterol Lowering
At Your Request: Limited, Wax Specialist Required
Cholesterol Lowering: Sodium, 2 Gram
01/12/24 14:58
CT Head W/o Cont STROKE ALERT Urgent
Comment:
Reason For Exam: L sided facial droop, numbness
01/12/24 15:15
Electrocardiogram (*1) Urgent
Reason for Study: Other
Other Reason for Exam: Possible Stroke
01/12/24 15:16
CT Head/Neck Ang STROKE ALERT Urgent
Comment:
Reason For Exam: L sided ataxia, L sided sensory changes.
01/12/24 15:23
Complete Blood Count/With Diff Urgent
Comprehensive Metabolic Panel Urgent
PTT Urgent
Prothrombin Time Urgent
Troponin I Urgent
01/12/24 16:15
Aspirin 325 mg PO NOW STA
01/12/24 16:17
NEUROLOGY CONSULT Routine
Consulting Provider: Evonne Vargas
Was physician already notified: Yes
01/12/24 16:23
Clopidogrel Bisulfate [Plavix] 75 mg PO NOW STA
01/12/24 17:18
Admit/Transfer Patient As Directed
Co-Sign Provider:
Level of Care: Inpatient admission
Assign to:: Telemetry
Physician / Group: Ryan Oconnor - hospitalists
Diagnosis: ACUTE CVA
Reason for Telemetry: CVA/TIA
Date to Stop Telemetry: 01/15/24
Time to Stop Telemetry: 11:00
Reason for Hospitalization: ACUTE CVA - CVA workup, ASA/Plavix
Expected length of stay greater than two midnights?: Yes
ELOS- Estimated Length of Stay in days: 3
I certify the patient meets the requirements for IP care: Yes
PRN Pain Medication Management As Directed
May give lesser potent ordered pain med per pt: Yes
preference::
Protocol:: Medication orders for pain may be administered in a
manner that supports deferring to patient preference
when the pt is:
- Requesting an ordered lesser potent pain medication.
Least to most potent pain medications are defined
as: acetaminophen < NSAID < tramadol < opioids
(morphine, oxycodone, hydromorphone).
- Requesting a lesser dose of the same medication IF
ORDERED.
- Requesting a less intrusive route of administration
if both routes are prescribed by the provider (PO <
IV).
01/12/24 17:19
Code Status As Directed
Resuscitation Status: Full Code
01/12/24 19:15
Acetaminophen [Tylenol/Feverall] 650 mg RECTAL Q4HPRN PRN
Acetaminophen [Tylenol] 650 mg PO Q4HPRN PRN
Bisacodyl [Dulcolax] 10 mg RECTAL [id number] PRN
Docusate W/Senna [Senokot-S] 1 tablet PO BIDPRN PRN
Meclizine [Antivert] 25 mg PO Q8HPRN PRN
Ondansetron Injectable [Zofran] 4 mg IV Q6HPRN PRN
Polyethylene Glycol Powder [Miralax] 17 grams PO DAILYPRN PRN
01/12/24 19:15
Echo 2D MMode Color/Doppler Routine
Reason for Study: stroke/TIA
Case Management Consult ONCE
Case Management Consult: Discharge Planning
Comment: stroke/tia
DIETARY CONSULT Routine
Reason for Consult: stroke/TIA
Wind Turbine Erector Urgent
MR Brain Without Contrast Routine
Comment:
Reason For Exam: stroke/TIA
Recent pill cam endoscopy?: No
Activity As Directed
Activity Level: As Tolerated
NIH Stroke Scale As Directed
Directions: Per protocol
Comment: every shift and with any change in condition or mental status
Neurological Checks As Directed
Frequency: q4h
Patient Education As Directed
Type: Stroke education packet
Comment: provide to patient and family
Pneumatic Compression Sleeves As Directed
Type: Knee high
Swallow Screening CVA/TIA ONLY As Directed
Comment: NPO until swallowing screening completed
If patient FAILS swallow screening:: NPO, Speech Therapy consult, Aspiration Precautions
If patient PASSES swallow screening, diet:: Cholesterol Lowering
Above diet order entered?: Yes- passed screening
Vital Signs As Directed
Frequency: Per unit guidelines
Ot Eval And Treat Routine
Pt Eval And Treat Routine
Activity Level: As Tolerated
Speech Therapy Eval & Treat Routine
DX Deep Vein Thrombosis Video Routine
01/12/24 22:00
Artificial Tears (Pf) [Refresh Eye Drops (Pf)] 1 drops BOTH EYES QID
01/13/24 06:00
Basic Metabolic Panel IN AM
Cardiovascular Evaluation IN AM
Complete Blood Count/No Diff IN AM
Hemoglobin A1c [Glycohemoglobin (HgbA1c)] IN AM
01/13/24 08:00
Aspirin Chewable [Low Strength Aspirin] 81 mg PO DAILY
Atorvastatin [Lipitor] 20 mg PO DAILY
Clopidogrel Bisulfate [Plavix] 75 mg PO DAILY
01/15/24 11:00
DC Protocol for Telemetry ONCE
Abnormal Lab Results
01/12/24
15:23
MCH 31.1 H pg
(27.0-31.0)
Absolute Neuts (auto) 6.7 H 10^3/uL
(1.4-6.5)
Absolute Monos (auto) 0.7 H 10^3/uL
(0.1-0.6)
Chloride 108 H mmol/L
(98-107)
BUN 26 H mg/dl
(7-17)
Glucose 141 H mg/dl
(70-99)
01/12/24 15:23
01/12/24 15:23
Vital Signs
Initial and Last Documented VS:
Initial Vital Signs
Temp Pulse Resp BP Pulse Ox
98.1 F 84 18 188/58 93
01/12/24 15:00 01/12/24 15:00 01/12/24 15:00 01/12/24 15:00 01/12/24 15:00
Last Documented Vital Signs
Temp Pulse Resp BP Pulse Ox
98.0 F 71 16 164/68 96
01/12/24 19:00 01/12/24 19:00 01/12/24 19:00 01/12/24 19:00 01/12/24 19:00
MDM/Problems Addressed
MDM/Problems Addressed:
Uncontrolled hypertension, acute CVA
*Radiology
Radiology exam reviewed: preliminary read by ED provider (No obvious intracranial bleeding) and radiology read reviewed
*Pulse Oximetry
Patient hypoxic: no
*EKG
Interpreted by ED Provider?: Yes
Interpretation: normal
Rate: normal
Rhythm: sinus
[place]: normal axis
Ischemia: no ischemia
*Respiratory Therapy Assistant Interpretation
Rate: normal
Interpretation: normal
Rhythm: sinus
*Critical Care Note
Total Time (30-74mins, 75-104mins- exclusive of procedures): 65 minutes
Data Reviewed
Review of Other/Old Records Reveals: Radiology Studies (Prior MRI reviewed)
Source: patient and family
Prescriptions/Medications Considered But Not Given:
Consider TNK see notes
Patient Management
Discussion with other providers: Hospitalist and [facility] (Case discussed with Dr. Vargas neurology)
Escalation/DeEscalation of care consider admission/obs:
Lengthy discussion with the family. Patient does arrive within the window for TNK. She has an NIH stroke score of 4. Lengthy discussion regarding the consideration for TNK. Family made aware of risks. The patient definitely has some ataxia to
the left side but does have functionality. At this time, patient and family would like to forego TNK citing the risks associated with TNK. I think this is reasonable as she is not aphasic and is able to function with her extremities. Case
discussed with neurology. Aspirin and Plavix ordered
ED Attending Note
-
Portions of this chart may have been created with voice recognition software.� Occasional wrong word or��sound alike� substitutions may have occurred due to the inherent limitations of voice recognition software.
Discharge Plan
Departure
Patient Disposition: Admit
Date of Disposition: 01/12/24
Time of Disposition: 16:14
Admit to: Telemetry
Presentation/result/management discussed w/ accepting MD/DO: Hospitalist
Discharge Problem:
Acute CVA (cerebrovascular accident)
Interventions
Interventions:
*Risk Screen - Suicide Last Done: 01/12/24 19:37
*ED COVID-19 Vaccine History Last Done: 01/12/24 19:37
*Nursing Disposition Last Done: 01/12/24 19:04
ED- Pulmonary Assessment Last Done: 01/12/24 15:15
ED- Neurological Assessment Last Done: 01/12/24 15:15
ED- Cardiac Assessment Last Done: 01/12/24 15:15
ED Swallowing Screen Last Done: 01/12/24 15:15
Discharge Date and Time
Discharge Date/Time: 01/12/24 19:04
[2024-01-12 15:59] LABS: % Basophils 0.8 % (0-2); % Eosinophils 0.5 % (0-6); % Immature Granulocytes 0.4 % (0-0.5); % Lymphocytes 24.9 % (20.5-51.1); % Monocytes 6.9 % (1.7-9.3); % Neutrophils 66.5 % (42.2-75.2); Absolute Basophils 0.1 10^3/uL (0-0.2); Absolute Eosinophils 0.1 10^3/uL (0-0.7); Absolute Lymphocytes 2.5 10^3/uL (1.2-3.4); Absolute Monocytes 0.7 10^3/uL (0.1-0.6); Absolute Neutrophils 6.7 10^3/uL (1.4-6.5); Hematocrit 41.6 % (37.0-47.0); Hemoglobin 14.6 g/dL (12.0-16.0); Mean Corp Hgb Conc. 35.1 g/dL (33.0-37.0); Mean Corpuscular Hgb 31.1 pg (27.0-31.0); Mean Corpuscular Volume 88.7 fL (81.0-99.0); Mean Platelet Volume 10.1 fL (7.4-10.4); Nucleated Red Blood Cells % 0 %; Platelet Count 393 10^3/uL (130-400); Red Blood Cell Count 4.69 10^6/uL (4.20-5.40); Red Cell Dist. Width 12.5 % (11.5-14.5); White Blood Cell Count 10.1 10^3/uL (4.8-10.8)
[2024-01-12 16:10] LABS: INR 1.03; PT 13.3 Sec (11.4-14.6)
[2024-01-12 16:11] LABS: APTT 28.8 Sec (23.4-35.0)
[2024-01-12 16:13] LABS: ALT (SGPT) 19 U/L (0-35); AST (SGOT) 22 U/L (14-36); Albumin 4.6 g/dl (3.5-5.0); Alkaline Phosphatase 106 U/L (38-126); Blood Urea Nitrogen 26 mg/dl (7-17); Calcium 9.9 mg/dl (8.4-10.2); Carbon Dioxide 23 mmol/L (22-30); Chloride 108 mmol/L (98-107); Glucose 141 mg/dl (70-99); Potassium 4.4 mmol/L (3.5-5.1); Sodium 140 mmol/L (135-145); Total Bilirubin 0.4 mg/dl (0.2-1.3); Total Protein 7.2 g/dl (6.3-8.2); eGFR > 60.00
[2024-01-12 16:25] LABS: Troponin I < 0.012 ng/ml
[2024-01-12] MEDS: ASPIRIN 325 MG PO (16:29)
[2024-01-12] MEDS: PLAVIX 75 MG PO (16:29)
--- NOTE | 2024-01-12 17:11 | HPS.HSE ---
Family Physician
-
Family Physician: Rekha Sommers PA-C
Chief Complaint
-
stroke symptoms
History of Present Illness
63 y/o F, hx of congenital deafness, HTN, HLD presents to ER with reports of L facial numbness, followed by L arm weakness and facial asymmetry noted at 230 pm. Symptoms progressed and patient presented to ER. no vision changes, dizziness. No falls.
in ER, a CVA alert was called, negative CTA. Patient was offered TNK but after discussion with family, deferred it.
Patient was seen by Neurology and ASA/Plavix was started.
Medical History
Past Medical History
Past Medical History: Reports Other (congenital deafness, HTN, HLD)
Past Surgical History: Reports Other (Bowel resection (Partial colon removed due to Intussusception 2010) and ( x3))
Social History
Tobacco: Non-smoker
Alcohol: Occasional
Drug: None
Personal:
Living: With Family
Family History
Family History: Not pertinent
Allergies / Home Medications
Allergies reflects when Allergies were last updated in [facility].
Home Medications with original date entered in [facility]
Allergy/Medication List:
Allergies
Allergy/AdvReac Type Severity Reaction Status Date / Time
No Known Allergies Allergy Verified 01/12/24 15:11
Home Medications
acetaminophen 500 mg tablet (Tylenol Extra Strength) 500 mg PO DAILYPRN PRN mild pain 08/10/23
atorvastatin 20 mg tablet 20 mg PO DAILY High Cholesterol 08/10/23
cyanocobalamin (vitamin B-12) 1,000 mcg tablet 1,000 mcg PO DAILY Supplement ##0 08/10/23
ibuprofen 200 mg tablet (Advil) 800 mg PO BIDPRN PRN mild pain 08/10/23
magnesium oxide 400 mg PO DAILY Supplement ##0 08/10/23
polyvinyl alcohol 1.4 % eye drops 1 drp BOTH EYES QID Eye Condition 03/16/24
triamterene 37.5 mg-hydrochlorothiazide 25 mg tablet 1 tab PO QPM Blood Pressure 08/10/23
meclizine 25 mg tablet 25 mg PO Q8HPRN PRN vertigo #21 tabs 08/12/23
Review of Systems
-
A 12 point ROS was completed and negative except as noted: Yes
Physical Exam
Vital Signs
Vital Signs
Temp Pulse Resp BP Pulse Ox
98.1 F 77 19 194/67 96
01/12/24 15:00 01/12/24 15:21 01/12/24 15:21 01/12/24 15:21 01/12/24 15:21
Physical Exam
General: No Apparent Distress
HEENT: NormoCephalic and Anicteric
Respiratory: Clear; No Wheezes
Cardiac: S1/S2 and Regular Rhythm
GI: Soft and Non Tender
Neuro: Awake, Alert and Other (L pronator drift, L ataxia and also facial droop)
Psych: Calm
Laboratory Results
-
01/12/24 15:23
01/12/24 15:23
Laboratory Results
PT 13.3 Sec (11.4-14.6) 01/12/24 15:23
INR 1.03 01/12/24 15:23
APTT 28.8 Sec (23.4-35.0) 01/12/24 15:23
Total Bilirubin 0.4 mg/dl (0.2-1.3) 01/12/24 15:23
AST 22 U/L (14-36) 01/12/24 15:23
ALT 19 U/L (0-35) 01/12/24 15:23
Alkaline Phosphatase 106 U/L (38-126) 01/12/24 15:23
Troponin I < 0.012 ng/ml 01/12/24 15:23
Data Reviewed
-
Diagnostic Radiology: Report Reviewed by me and Discussed with Physician
Lab Data: Labs Reviewed by me and Discussed with Physician
Impression/Plan
-
Assessment:
Likely acute CVA with Left sided facial droop, ataxia
- NIH 4
- CT head negative; CT negative
- TNK offered, family/patient declined
- admit tele
- MRI brain
- Echo
- Lipids/A1c
- continue ASA/Plavix/Statin
- PT/OT/ST
- Neuro consulted
Essential HTN
- hold BP meds for permissive HTN first 24 hours keep BP <220/120
HLD
- statin
- check lipids
congenital deafness
- can read lips and communicates with sign language
DVT ppx: SCDs
Code: Full
--- NOTE | 2024-01-12 20:00 | PTCARENOTE ---
When performing the NIH scale, pt is able to read and say words however words are not fully clear due to pt's deafness and how she pronounces words. Only noted with a slight LT facial droop when performed. No further LT sided weakness noted.
[2024-01-12] MEDS: REFRESH EYE DROPS (PF) 1 DROPS BOTH EYES (21:12)
[2024-01-13] VITALS (8 sets, daily range): BP systolic 118–170; BP diastolic 62–87; PULSE 87; O2SAT 97
[2024-01-13] MEDS: REFRESH EYE DROPS (PF) 1 DROPS BOTH EYES ×4 (08:50→22:23)
[2024-01-13] MEDS: PLAVIX 75 MG PO (08:51)
[2024-01-13] MEDS: LIPITOR 20 MG PO (08:51)
[2024-01-13] MEDS: LOW STRENGTH ASPIRIN 81 MG PO (08:51)
--- NOTE | 2024-01-13 10:07 | CON.NEURO4 ---
Addendum entered and electronically signed by Ken Salvador MD 01/15/24 11:45:
63-year-old lady with history of migraine headaches uncontrolled hypertension who was admitted with new onset of left facial and left arm numbness that is persisting with normal MRI studies
Plan: Continue aspirin and Plavix
Continue verapamil 120 mg daily
Blood pressure monitoring
Original Note:
Documented by User: Miroslava Coley NP 01/13/24 12:59
Consultation - Neurology 4
-
CONSULTING PHYSICIAN: Ken Salvador MD
REFERRING PHYSICIAN: Hospitalists/Dr. Oconnor
DICTATED BY: LEOBARDO Langston
DATE/TIME OF REQUEST: 01/12/24
DATE/TIME OF CONSULTATION: 01/13/24
Reason for Consultation: CVA
History of Present Illness:
This is a 63-year-old right-handed female who has presented to the hospital on 01/12/24 with report of left-sided numbness, LUE weakness, and left facial drooping. Patient and her family at bedside report that yesterday (01/12/24) she was in her
usual state when suddenly at 1425 she developed numbness in her left face, followed by her left arm, then her left leg. Her family then noticed that her left face appeared droopy, her left arm was incoordinated, and her gait was unsteady. CT head
and CTA head/neck were obtained on arrival in the ER and were negative for any acute abnormalities. NIHSS was 4 for left facial drooping, LUE drift, LUE ataxia, and mild sensation loss. Family opted against TNK and she was not a candidate for IAT
due to no LVO. She was loaded with DAPT in the ER. By last evening, patient reports that her symptoms were improved. She still endorses some numbness on the left side of her mouth and in her left hand thumb and 2nd fingers, and her left face is
still droopy, but she denies any ataxia. She reports having a mild headache behind bilateral eyes today that she rates a 2-3/10, not associated with photo/phonophobia, nausea/vomiting, or visual changes. She denies any history of TIA, stroke, or
symptoms like this in the past. She as not taking any blood-thinning medications.
She reports a distant history of migraine headaches associated with photophobia, no aura, in her 20's and 30's. She attributed her headaches to drinking soda and they seemed to resolve after she stopped drinking it. In July 2023 she suddenly
developed vertigo that has been intermittently persistent since that time. She describes the vertigo as a room-spinning sensation. She has it almost daily. It is worse with turning her head quickly, and typically resolved after resting for a few
minutes. She was evaluated at by Neurology at this time and workup including CTA head/neck, MRI brain were unremarkable except for benign meningioma. Patient followed up with Cardiology as an outpatient and completed 3 weeks of Holter
monitoring, which demonstrated a 5 second burst of atrial tachycardia but was otherwise unremarkable. She has not completed vestibular therapy as an outpatient. She does note intermittent tinnitus in her left eye in addition to a full and itching
sensation. She was evaluated by ENT as an outpatient and was told there were no abnormal findings. She has taken meclizine PRN, which worsened her symptoms.
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
Surgical History: Bowel resection, hernia repair, x3, R TKR, hernia repair, R carpal tunnel release
Family History: 2 daughters- migraines.
Social History: Former smoker. Occasional alcohol. Denies illicit drug use.
Allergies: No known allergies.
Home Medications: See below.
Review of Symptoms:
Patient denies any fever, chest pain, shortness of breath, GI or symptoms.
�Per the HPI.�All systems are reviewed negative except above.
Physical Exam:
The patient is afebrile, abdomen is nondistended, breathing is unlabored, skin is warm and dry, no edema.
NIH Stroke Scale:
I performed the NIH stroke scale on the patient on 01/13/24 at 1000. The patient scored 2 points on the NIH stroke scale assessment, which were assigned as follows: See below.
Neurologic Examination:
The patient is awake, alert and oriented x 3. She is able to follow commands and answer questions appropriately. There is no aphasia or dysarthria. On cranial nerve assessment, pupils are 3 mm bilateral, round and reactive to light and
accommodation. Visual olmstead are full. Extraocular movements are intact. There is slight left eye ptosis and left mouth drooping. Hearing is absent bilaterally to normal conversation volume. Tongue palate and uvula are midline. Sternocleidomastoid
strengths are full bilaterally. Motor strengths are 5/5 bilateral upper and lower extremities on medical research [place] scale. There is no drift or involuntary movement noted. Deep tendon reflexes are 2+ bilateral upper and lower extremities and
Babinski is absent bilaterally. Sensations of touch are mildly reduced in the left hand thumb and 2nd fingers. Sensation of cold is moderately reduced in the LLE. There was no extinction noted on double simultaneous stimulation. Coordination is
intact by finger to nose bilaterally.
Lab Results: See below.
Neuro Imaging:
1. CT Head 01/12/24: No acute intracranial abnormality noted. Stable appearance of the predominantly calcified 2.7 cm meningioma along the left frontal lobe with associated mild local mass effect.
2. CTA head/neck 01/12/24: No significant arterial stenosis. Partially calcified atherosclerotic plaque of the right greater than left carotid bifurcations without significant stenosis
Differentials for the patient's presentation include:
1. Acute right hemisphere ischemic stroke likely producing patient's symptoms.
2. Migraine aura possibly producing symptoms but less likely given lack of history of aura associated with migraines.
3. Left frontal lobe meningioma, noncontributory.
4. Chronic vertigo; unclear etiology, BPPV or meneire's disease possible.
Patient has the following risk factors for their symptoms: HTN, HLD
IV Tenecteplase/IAT candidacy: Family opted against TNK and she was not a candidate for IAT due to no LVO.
Recommendations:
-Continue DAPT with aspirin 81mg and Plavix 75mg daily for 21 days. After 21 days, discontinue Plavix and continue aspirin 81mg daily only, indefinitely.
-Permissive hypertension SBP<220, DBP<120 until 1430 today, then goal normotension.
-MRI brain noncontrast pending.
-TTE pending.
-Monitor on telemetry, consideration for terminal makeup operator clinical research monitor with ILR.
-LDL goal <70. LDL is 113. Home atorvastatin increased from 20mg to 40mg daily.
-Goal normoglycemia, hbA1c is pending.
-Checking blood work for metabolic abnormalities.
-NIHSS and neurological checks per unit guidelines.
-Provide patient with a stroke education packet.
-PT/OT/ST evaluations.
-DVT prophylaxis.
-Will follow pending results.
Discussed patient care with: Dr. Salvador, the patient, patient's family
Vital Signs and Labs
-
Vital Signs and Labs:
Vital Signs
Temp Pulse Resp BP Pulse Ox
98.1 F 76 16 158/82 94
01/13/24 11:20 01/13/24 11:20 01/13/24 11:20 01/13/24 11:20 01/13/24 11:20
Lab Results
01/13/24 11:11
01/13/24 11:11
PT 13.3 Sec (11.4-14.6) 01/12/24 15:23
INR 1.03 01/12/24 15:23
APTT 28.8 Sec (23.4-35.0) 01/12/24 15:23
Sodium 137 mmol/L (135-145) 01/13/24 11:11
Potassium 4.4 mmol/L (3.5-5.1) 01/13/24 11:11
BUN 21 mg/dl (7-17) H 01/13/24 11:11
Glucose 125 mg/dl (70-99) H 01/13/24 11:11
Calcium 10.0 mg/dl (8.4-10.2) 01/13/24 11:11
LDL Cholesterol, Calc 113 mg/dl 01/13/24 11:11
Medications
-
Active Medications
Generic Name Dose Route Start Last Admin
Trade Name Freq PRN Reason Stop Dose Admin
Acetaminophen 650 mg 01/12/24 19:15
Acetaminophen 650 Mg Rectal Suppository RECTAL 02/09/24 19:14
Q4HPRN PRN
SEXTON, mild pain, or temp >100.4F
Acetaminophen 650 mg 01/12/24 19:15
Acetaminophen 325 Mg Tablet PO 02/09/24 19:14
Q4HPRN PRN
SEXTON, mild pain, or temp >100.4F
Artificial Tears 1 drops 01/12/24 22:00 01/13/24 08:50
Artificial Tears Pf (Refresh) 10 Drop Droperette BOTH EYES 02/09/24 21:59 1 drops
QID EMMANUEL Administration
Aspirin 81 mg 01/13/24 08:00 01/13/24 08:51
Aspirin 81 Mg Chewable Tablet PO 02/10/24 07:59 81 mg
DAILY EMMANUEL Administration
Atorvastatin Calcium 40 mg 01/14/24 08:00
Atorvastatin (Lipitor) 40 Mg Tablet PO 02/11/24 07:59
DAILY EMMANUEL
Bisacodyl 10 mg 01/12/24 19:15
Bisacodyl 10 Mg Rectal Suppository RECTAL 02/09/24 19:14
[id number] PRN
constipation
Clopidogrel Bisulfate 75 mg 01/13/24 08:00 01/13/24 08:51
Clopidogrel 75 Mg Tablet PO 02/10/24 07:59 75 mg
DAILY EMMANUEL Administration
Meclizine HCl 25 mg 01/12/24 19:15
Meclizine 25 Mg Tablet PO 02/09/24 19:14
Q8HPRN PRN
vertigo
Ondansetron HCl 4 mg 01/12/24 19:15
Ondansetron 4 Mg/2 Ml Vial IV 02/09/24 19:14
Q6HPRN PRN
nausea and vomiting
Polyethylene Glycol 17 grams 01/12/24 19:15
Polyethylene Glycol Powder 17 Grams Packet PO 02/09/24 19:14
DAILYPRN PRN
constipation
Senna/Docusate Sodium 1 tablet 01/12/24 19:15
Docusate W/Senna (Lisa-Colace) Tablet PO 02/09/24 19:14
BIDPRN PRN
constipation
Sodium Chloride 0 flush 01/12/24 20:00
Sodium Chloride 0.9% (Flush) Syringe IV 02/09/24 19:59
PER PROTOCOL EMMANUEL
Home Medications
�Medication �Instructions �Recorded
acetaminophen 500 mg tablet 500 mg PO DAILYPRN PRN mild pain 08/10/23
(Tylenol Extra Strength)
atorvastatin 20 mg tablet 20 mg PO DAILY High Cholesterol 08/10/23
cyanocobalamin (vitamin B-12) 1,000 mcg PO DAILY Supplement ##0 08/10/23
1,000 mcg tablet
ibuprofen 200 mg tablet (Advil) 800 mg PO BIDPRN PRN mild pain 08/10/23
magnesium oxide 400 mg PO DAILY Supplement ##0 08/10/23
polyvinyl alcohol 1.4 % eye drops 1 drp BOTH EYES QID Eye Condition 08/10/23
triamterene 37.5 1 tab PO QPM Blood Pressure 08/10/23
mg-hydrochlorothiazide 25 mg tablet
meclizine 25 mg tablet 25 mg PO Q8HPRN PRN vertigo #21 08/12/23
tabs
NIH Stroke Score
Subsequent NIH Scale
Date of Subsequent NIH Scale: 01/13/24
Time of Subsequent NIH Scale: 10:00
NIH Stroke Score
Level of Consciousness: 0 - Alert
LOC Questions: 0-Answers both correctly
LOC Commands: 0-Performs both correctly
Best Horizontal Gaze: 0-Normal
Visual [place]: 0=Normal, no visual loss
Facial Palsy: 1=Minor paralysis
Motor - Right Arm: 0=No drift 10 seconds
Motor - Left Arm: 0=No drift 10 seconds
Motor - Right Le-No drift 5 seconds
Motor - Left Le-No drift 5 seconds
Limb Ataxia: 0-Absent
Sensation: 1-Mild loss
Best Language: 0-No aphasia
Dysarthria: 0-Normal
Extinction and Inattention: 0-No abnormality
Total Score:: 2
Modified [place] (mRS) Score
Modified [place] Scale (mRS): No significant disability. Able to carry out usual activities.
Score: 1
Alteplase Contraindication
Inclusion and Exclusion criteria reviewed: Yes
Reasons for NON-Tx with Thrombolytics ABSOLUTE Exclusions: Patient/family refused
IAT Contraindications: Imaging doesn't show large vessel occlusion as cause of stroke

Documented by User: Ken Salvador MD 01/13/24 22:00
Consultation - Neurology 4
-
CONSULTING PHYSICIAN: Ken Salvador MD
REFERRING PHYSICIAN: Hospitalists/Dr. Oconnor
DICTATED BY: LEBOARDO Langston
DATE/TIME OF REQUEST: 01/12/24
DATE/TIME OF CONSULTATION: 01/13/24
Reason for Consultation: Numbness(L)
History of Present Illness:
This is a 63-year-old right-handed deaf female who has presented to the hospital on 01/12/24 with report of left-sided numbness of face, LUE weakness, and left facial drooping. Patient and her family at bedside report that yesterday (01/12/24) she
was in her usual state when suddenly at 1425 she developed numbness in her left face, followed by her left arm, then her left leg. Her family then noticed that her left face appeared droopy, her left arm was incoordinated, and her gait was unsteady.
CT head and CTA head/neck were obtained on arrival in the ER and were negative for any acute abnormalities. NIHSS was 4 for left facial drooping, LUE drift, LUE ataxia, and mild sensation loss. Family opted against TNK and she was not a candidate
for IAT due to no LVO. She was loaded with DAPT in the ER. By last evening, patient reports that her symptoms were improved. She still endorses some numbness on the left side of her mouth and in her left hand thumb and 2nd fingers, and her left face
is still droopy, but she denies any ataxia. She reports having a mild headache behind bilateral eyes today that she rates a 2-3/10, not associated with photo/phonophobia, nausea/vomiting, or visual changes. She denies any history of TIA, stroke, or
symptoms like this in the past. She as not taking any blood-thinning medications.
She reports a distant history of migraine headaches associated with photophobia, no aura, in her 20's and 30's. She attributed her headaches to drinking carbonated beverages(soda) that resolved after she stopped drinking it. In July 2023 she
suddenly developed vertigo that has been intermittently persistent since that time. She describes the vertigo as a room-spinning sensation. She has it almost daily. It is worse with turning her head quickly, and typically resolved after resting for
a few minutes. She was evaluated at by Neurology at this time and workup including CTA head/neck, MRI brain were unremarkable except for benign meningioma. Patient followed up with Cardiology as an outpatient and completed 3 weeks of Holter
monitoring, which demonstrated a 5 second burst of atrial tachycardia but was otherwise unremarkable. She has not completed vestibular therapy as an outpatient. She does note intermittent tinnitus in her left ear in addition to a full and itching
sensation. She was evaluated by ENT as an outpatient and was told there were no new abnormal findings. She had taken meclizine PRN, which worsened her symptoms.
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
Surgical History: Bowel resection, hernia repair, x3, R TKR, hernia repair, R carpal tunnel release
Family History: Migraines in her daughters
Social History: Former smoker. Occasional alcohol. Denies illicit drug use.
Allergies: No known allergies.
Home Medications: See below.
Review of Symptoms:
Patient denies any fever, chest pain, shortness of breath, GI or symptoms.
�Per the HPI.�All systems are reviewed negative except above.
Physical Exam:
The patient is afebrile, abdomen is nondistended, breathing is unlabored, skin is warm and dry, no edema.
NIH Stroke Scale:
I performed the NIH stroke scale on the patient on 01/13/24 at 1000. NIH stroke scale =2.
Neurologic Examination:
The patient is awake, alert and oriented x 3. She is able to follow commands and answer questions appropriately. There is no aphasia. She has dysarthria. On cranial nerve assessment, pupils are 3 mm bilateral, round and reactive to light and
accommodation. Visual olmstead are full. Extraocular movements are intact. There is slight left eye ptosis and left mouth drooping. Hearing is absent bilaterally to normal conversation volume. Tongue palate and uvula are midline. Sternocleidomastoid
strengths are full bilaterally. Motor strengths are 5/5 bilateral upper and lower extremities on medical research [place] scale. There is no drift or involuntary movement noted. Deep tendon reflexes are 2+ bilateral upper and lower extremities and
Babinski is absent bilaterally. Sensations of touch are mildly reduced in the left hand thumb and 2nd fingers. Sensation of cold is moderately reduced in the LLE. There was no extinction noted on double simultaneous stimulation. Coordination is
intact by finger to nose bilaterally. Rombergs Negative. Gait WNL
Lab Results: See below.
Neuro Imaging:
1. CT Head 01/12/24: No acute intracranial abnormality noted. Stable appearance of the predominantly calcified 2.7 cm meningioma along the left frontal lobe with associated mild local mass effect.
2. CTA head/neck 01/12/24: No significant arterial stenosis. Partially calcified atherosclerotic plaque of the right greater than left carotid bifurcations without significant stenosis
Differentials for the patient's presentation include:
1. Acute right hemisphere Lacunar stroke likely producing patient's symptoms.
2. Migraine aura possibly producing symptoms but less likely given lack of history of aura associated with migraines.
3. Hypertensive encephalopathy.
4. Chronic vertigo; unclear etiology, BPPV or meneire's disease possible.
Patient has the following risk factors for their symptoms: HTN, HLD
IV Tenecteplase/IAT candidacy: Family opted against TNK and she was not a candidate for IAT due to no LVO.
Recommendations:
-Continue DAPT with aspirin 81mg and Plavix 75mg daily for 21 days. After 21 days, discontinue Plavix and continue aspirin 81mg daily only, indefinitely.
- Strict BP control.
-MRI brain noncontrast pending.
-TTE pending.
-Monitor on telemetry, consideration for alf clinical research monitor with ILR.
-LDL goal <70. LDL is 113. Home atorvastatin increased from 20mg to 40mg daily.
-Goal normoglycemia, hbA1c is pending.
-Checking blood work for metabolic abnormalities.
-NIHSS and neurological checks per unit guidelines.
-Provide patient with a stroke education packet.
-PT/OT/ST evaluations.
-DVT prophylaxis.
-Will follow pending results.
Discussed patient care with: Dr. Salvador, the patient, patient's family
Addendum: Pat was seen and examined. Agree with above History exam assessment and plan.
NIH Stroke Score
NIH Stroke Score
Total Score:: 2
Modified [place] (mRS) Score
Score: 1
--- NOTE | 2024-01-13 10:29 | PTOTSP ---
ST Acute Care Evaluation
Pt currently presents with oropharyngeal and esophageal swallow parameters that are within functional limits for safe PO intake of all solids and liquids - no overt s/s of penetration or aspiration observed at bedside.
Per pt and pt's family report (who served as ASL interpreters) - pt does not display any acute deviations in receptive language, expressive language, precision of signing, or cognitive function at this time. As a result, further assessment is not
warranted at this time.
Recommendations:
- Continue with regular solids, thin liquids, meds as tolerated.
- General aspiration precautions.
- No skilled dysphagia or cognitive linguistic services warranted at this time. GUN PERFORATOR LOADER to sign off.
[2024-01-13 11:30] LABS: Hematocrit 41.1 % (37.0-47.0); Hemoglobin 14.6 g/dL (12.0-16.0); Mean Corp Hgb Conc. 35.5 g/dL (33.0-37.0); Mean Corpuscular Hgb 30.3 pg (27.0-31.0); Mean Corpuscular Volume 85.3 fL (81.0-99.0); Mean Platelet Volume 9.5 fL (7.4-10.4); Platelet Count 385 10^3/uL (130-400); Red Blood Cell Count 4.82 10^6/uL (4.20-5.40); Red Cell Dist. Width 12.6 % (11.5-14.5); White Blood Cell Count 9.2 10^3/uL (4.8-10.8)
[2024-01-13 11:52] LABS: Blood Urea Nitrogen 21 mg/dl (7-17); Carbon Dioxide 23 mmol/L (22-30); Chloride 103 mmol/L (98-107); Estimated Creatinine Clearance 73 ml/min; Glucose 125 mg/dl (70-99); HDL Cholesterol 61 mg/dl; LDL Cholesterol, Calculated 113 mg/dl; Potassium 4.4 mmol/L (3.5-5.1); Sodium 137 mmol/L (135-145); Total Cholesterol 204 mg/dl (50-199); Triglyceride 154 mg/dl (10-149); Very Low Density Lipoprotein 30 mg/dl (0-30); eGFR > 60.00
--- NOTE | 2024-01-13 15:51 | W.PN.HOSP.TC ---
Today's Communication/Plan
-
start Verapamil
Echocardiogram
Assessment / Plan
Assessment / Plan
Admitting impression was likely acute CVA with Left sided facial droop, ataxia
- NIH 4
- CT head negative; CT negative
- TNK offered, family/patient declined
- admit tele
- MRI brain: No acute intracranial abnormality noted.
Unchanged predominantly calcified meningioma along the left frontal lobe measuring up to 3.1 cm with associated mild local mass effect.
Sequelae of mild small vessel ischemic disease, unchanged from prior.
- Echo pending
- Lipids chol 204/trig 154/Hdl 61/ldl 113/A1c pending
- continue ASA/Plavix/Statin
- PT/OT/ST
- Neuro consulted, discussed
while I was in room on 2nd visit to discuss with roommate, in room related that pt had worsening symptoms when compared to earlier today. Discussed with neuro who requested starting the Verapamil as changing status most likely due to
elevated BP and small vessel disease. Acute process most likely related to small vessel disease
Essential HTN
- held BP meds for permissive HTN first 24 hours keep BP <220/120
BP 170/87, call placed and discussed with Dr. Salvador, recommended Verapamil SR 120 mg daily and has been ordered
HLD
- statin
- check lipids
congenital deafness
- can read lips and communicates with sign language
DVT ppx: SCDs
Code: Full
Anticipated Discharge: 24 - 48 hours
Subjective/Interval History
-
Date of Service: January 13, 2024
Still with left lateral from lips numbness as well as left index finger and thumb numbness
Objective Data
-
Labs:
Laboratory Results
01/13/24
11:11
WBC 9.2
Hgb 14.6
Hct 41.1
Plt Count 385
Sodium 137
Potassium 4.4
Chloride 103
Carbon Dioxide 23
BUN 21 H
Creatinine 0.7
Glucose 125 H
Calcium 10.0
Vital Signs:
Vital Signs
Temp Pulse Resp BP Pulse Ox
98 F 82 16 170/87 94
01/13/24 15:36 01/13/24 15:36 01/13/24 15:36 01/13/24 15:36 01/13/24 15:36
I&O
01/12/24 01/13/24 01/14/24
06:59 06:59 06:59
Intake Total 480 / 480
Balance 480 / 480
Review of Systems
-
History Source: Patient and Family ( and son in room)
Constitutional: Denies Fever
EENT: Reports No Symptoms Reported
Respiratory: Reports No Symptoms
Cardiac: Reports No Symptoms
Abdomen/GI: Reports No Symptoms
Genitourinary: Reports No Symptoms
Neuro: Reports Numbness (lateral to left side of lips, left index finger and thumb)
Physical Exam
-
General: Well Developed, Well Nourished and No Apparent Distress
HEENT: Normocephalic, Atraumatic and Moist Mucous Membranes
Respiratory: Clear to Auscultation; Negative Wheezes, Rales or Rhonchi
Cardiac: Regular Rhythm and S1/S2
GI: Soft, Nontender and Nondistended
Musculoskeletal: No Clubbing, No Cyanosis and No Edema
Neuro: Other (deafness)
--- NOTE | 2024-01-13 16:01 | CM ---
commercial credit portfolio manager reviewed patient's chart and met with patient and spouse at bedside. Patient lives with spouse in s 2 story home, patient is independent with adl's and ambulation, patient is currently ambulating 100 feet with no device and physical
therapy are recommending oupatient PT.
Pharmacy: [facility]
PCP: Rekha Sommers
Plan; Home with spouse when stable.
[2024-01-13 16:33] LABS: Glycohemoglobin (HgbA1c) 5.6 % (4.0-5.6)
--- NOTE | 2024-01-13 16:52 | PTCARENOTE ---
This RN called to bedside, reporting patient feels numbness on L face and L arm. NIHSS performed, score of 2 obtained for L facial droop (unchanged from previous assessment), and sensory loss. MD Schneider at bedside, neurology contacted, order
for PO verapamil obtained - see MAR. Plan of care ongoing.
[2024-01-13] MEDS: CALAN EXTENDED RELEASE 120 MG PO (17:12)
[2024-01-13 18:50] LABS: Hepatitis C Antibody Negative (Negative)
[2024-01-14 03:20] VITALS: BP 143/71
[2024-01-14] MEDS: LIPITOR 40 MG PO (08:05)
[2024-01-14] MEDS: CALAN EXTENDED RELEASE 120 MG PO (08:05)
[2024-01-14] MEDS: LOW STRENGTH ASPIRIN 81 MG PO (08:06)
[2024-01-14] MEDS: PLAVIX 75 MG PO (08:06)
[2024-01-14] MEDS: REFRESH EYE DROPS (PF) 1 DROPS BOTH EYES ×2 (08:06→12:08)
[2024-01-14 11:17] VITALS: BP 158/75
--- NOTE | 2024-01-14 11:46 | CM ---
Patient seen at bedside with present. Patient translated in sign language for patient. Patient indicated that he was eager to take patient home and that he works at home. CM will provide IMM and continue to follow for
discharge planning needs.
PLan; home with no needs.
--- NOTE | 2024-01-14 12:17 | W.PN.HOSP.TC ---
Addendum entered and electronically signed by Tony Schneider MD 01/14/24 12:44:
Echo demonstrated no change from prior study
Original Note:
Today's Communication/Plan
-
dc to home
Assessment / Plan
Assessment / Plan
Admitting impression was likely acute CVA with Left sided facial droop, ataxia
- probable small vessel issue with HTN
- CT head negative; CT negative
- TNK offered, family/patient declined
- admit tele
- MRI brain: No acute intracranial abnormality noted.
Unchanged predominantly calcified meningioma along the left frontal lobe measuring up to 3.1 cm with associated mild local mass effect.
Sequelae of mild small vessel ischemic disease, unchanged from prior.
- Echo pending
- Lipids chol 204/trig 154/Hdl 61/ldl 113/A1c 5.6%
believes she may miss occ doses of Lipitor, importance of meticulousness stressed, would repeat level in 4-6 weeks and if LDL >100, would increase dose
- continue ASA/Plavix/Statin
- PT/OT/ST
- Neuro consulted, discussed
Essential HTN
- held BP meds for permissive HTN first 24 hours keep BP <220/120
BP 170/87, call placed and discussed with Dr. Salvador, recommended Verapamil SR 120 mg daily and has been ordered
HLD
- statin
congenital deafness
- can read lips and communicates with sign language
DVT ppx: SCDs
Code: Full
reviewed with , will dc now
More than 30 minutes spent in discharge including
Final examination of the patient
Summarizing hospital stay
Instructions for continuing care to all relevant caregivers
Preparation of discharge records, prescriptions, and referral forms
Total time spent (in minutes): 45
Anticipated Discharge: Today
Subjective/Interval History
-
Date of Service: January 14, 2024
Numbness have decreased
Objective Data
-
Vital Signs:
Vital Signs
Temp Pulse Resp BP Pulse Ox
97.5 F 69 17 158/75 95
01/14/24 11:17 01/14/24 11:17 01/14/24 11:17 01/14/24 11:17 01/14/24 11:17
I&O
01/13/24 01/14/24 01/15/24
06:59 06:59 06:59
Intake Total 480 / 480 1140 / 1140
Balance 480 / 480 1140 / 1140
Review of Systems
-
History Source: Patient and Family ( in room)
Constitutional: Denies Fever
EENT: Reports No Symptoms Reported
Respiratory: Reports No Symptoms
Cardiac: Reports No Symptoms
Abdomen/GI: Reports No Symptoms
Genitourinary: Reports No Symptoms
Neuro: Reports Numbness (lateral to left side of lips, left index finger and thumb, much improved)
Physical Exam
-
General: Well Developed, Well Nourished and No Apparent Distress
HEENT: Normocephalic, Atraumatic and Moist Mucous Membranes
Respiratory: Clear to Auscultation; Negative Wheezes, Rales or Rhonchi
Cardiac: Regular Rhythm and S1/S2
GI: Soft, Nontender and Nondistended
Musculoskeletal: No Clubbing, No Cyanosis and No Edema
Neuro: Other (deafness)
--- NOTE | 2024-01-15 06:50 | W.DS.TRANS ---
DC Summary - Puller Through
-
Discharge Instructions:
Discharge Diagnosis/Procedures TIA
Diet Regular
Activity No restrictions
Driving Restrictions No driving
Bathing Restrictions None
Blood Work Lipid Profile, CMP, CBC, UA in 2-3 weeks
Instructions:
Stand-Alone Forms:
Changes to Home Medications: Yes
Discharge Medications:
DC Medications w/original date entered in [facility]
atorvastatin 20 mg tablet 20 mg PO DAILY High Cholesterol 08/10/23
cyanocobalamin (vitamin B-12) 1,000 mcg tablet 1,000 mcg PO DAILY Supplement ##0 08/10/23
magnesium oxide 400 mg PO DAILY Supplement ##0 08/10/23
polyvinyl alcohol 1.4 % eye drops 1 drp BOTH EYES QID Eye Condition 08/10/23
aspirin 81 mg chewable tablet 81 mg PO DAILY #30 tabs 01/14/24
clopidogrel 75 mg tablet 75 mg PO DAILY #21 tabs 01/14/24
verapamil 120 mg tablet,extended release 120 mg PO DAILY #30 tabs 01/14/24
Home Medication Changes
Verapamil added and should be adjusted based on response
Dyazide stopped
Plavix added for next 21 days and then to be stopped
continue ASA daily
Lipitor will be dose unchanged, but patient needs to be
meticulous with taking and if LDL does not reduce,
consideration for uptitration will be as per her PCP
Pending Results: No
--- NOTE | 2024-01-15 11:45 | W.PN.NEURO.1 ---
Today's Communication / Plan
-
Patient may go home on aspirin 81 Plavix 75 and verapamil 120mg daily
Neuro Assessment/Plan
Assessment
63-year-old lady with history of complicated migraine uncontrolled hypertension with left facial and hand numbness
Plan
Continue aspirin and Plavix.
Continue verapamil 120 mg daily
Subjective/Objective
Subjective Data
Date of Service: January 14, 2024
Patient continues to do well. Now complaints of minimal numbness of the corner of her mouth on the left, with minimal left hand numbness. There is no weakness
Objective Data
Vital Signs
Temp Pulse Resp BP Pulse Ox
36.4 C 69 17 158/75 95
01/14/24 11:17 01/14/24 11:17 01/14/24 11:17 01/14/24 11:17 01/14/24 11:17
Lab Results
01/13/24 11:11
01/13/24 11:11
PT 13.3 Sec (11.4-14.6) 01/12/24 15:23
INR 1.03 01/12/24 15:23
APTT 28.8 Sec (23.4-35.0) 01/12/24 15:23
Sodium 137 mmol/L (135-145) 01/13/24 11:11
Potassium 4.4 mmol/L (3.5-5.1) 01/13/24 11:11
BUN 21 mg/dl (7-17) H 01/13/24 11:11
Glucose 125 mg/dl (70-99) H 01/13/24 11:11
Calcium 10.0 mg/dl (8.4-10.2) 01/13/24 11:11
LDL Cholesterol, Calc 113 mg/dl 01/13/24 11:11
Patient Allergies
No Known Allergies Allergy (Verified 01/12/24 15:11)
Physical Exam
-
General: Well Developed, Well Nourished, No Apparent Distress and Comfortable
Eyes: Able to visualize OU and Unremarkable
HEENT: Normocephalic, Atraumatic and Moist Mucous Membranes
Neck: No Bruits Bilaterally and Full Range of Motion
Respiratory: Clear to Auscultation
Cardiac: Regular Rhythm
GI: Normal Bowel Sounds
Skin: Unremarkable
Extremities: No Clubbing
Psych: Anxious
Extended Neurological Exam
Mood & Affect: Anxious
Attention Span & Concentration: Awake, Alert and No Difficulty with 2 Step Request
Memory: Unremarkable, Recalls Objects and Recalls Short Term
Tremor: Hand Tremor Absent and Head Tremor Absent
Involuntary Movement: None
Speech: Quality Unremarkable and Quantity Unremarkable
Cranial Nerve II: Left Eye: Pupillary Reactivity Unremarkable and Pupillary Size Unremarkable
Cranial Nerve II: Right Eye: Pupillary Reactivity Unremarkable and Pupillary Size Unremarkable
Cranial Nerves III, IV, : Extraocular Movement: Extraocular Movement Full in all Directions
Cranial Nerve V: Facial Sensation: Other (Minimal loss of sensation(L))
Cranial Nerve VII: Facial Symmetry: Normal Facial Symmetry
Cranial Nerve VIII: Hearing: Other (Since )
Cranial Nerves IX, X: Palate Movement: Palate Elevation Symmetric
Cranial Nerve XI: Shoulder Shrug: Unremarkable
Cranial Nerve XII: Tongue Protusion: Midline
Muscle Strength, Overall: Full Throughout
Muscle Bulk & Tone: Bulk Unremarkable
Pronator Drift: No Drift in Upper Extremities and No Drift in Lower Extremities
Deep Tendon Reflexes: Unremarkable Throughout
Cold Sensation: Unremarkable
Vibration Sensation: Unremarkable
Touch Sensation: Unremarkable
Coordination: [id number] Testing Unremarkable
Babinski Sign: Absent Bilaterally
Gait & Station: Unremarkable Arm Swing
== END 2024-01-14 13:13 | disposition home or self-care (01) | DRG 69 ==
LOC: 4 WEST ACU 17:55
PROVIDERS: ADMITTING PHYSICIAN Internal Medicine; ATTENDING PHYSICIAN Internal Medicine; EMERGENCY PHYSICIAN Emergency Medicine; FAMILY PHYSICIAN Physician Assistant Medical; OTHER PHYSICIAN Psychiatry & Neurology Neurology
DX: I67.89 Other cerebrovascular disease (principal); G45.9 Transient cerebral ischemic attack, unspecified; H90.3 Sensorineural hearing loss, bilateral; R29.810 Facial weakness; R27.0 Ataxia, unspecified; I10 Essential (primary) hypertension; R20.2 Paresthesia of skin; D32.0 Benign neoplasm of cerebral meninges; H93.12 Tinnitus, left ear; E78.00 Pure hypercholesterolemia, unspecified; Z87.891 Personal history of nicotine dependence; Z79.899 Other long term (current) drug therapy
CPT/HCPCS: 93308; 70450; 70496; 70498; 70551; 80048; 80053; 80061; 83036; 84484; 85025; 85027; 85610; 85730; 86803; 92610; 93005; 93321; 93325; 97163; 97166; 99291; Q9967

== ENCOUNTER 2024-02-24 09:14 | Outpatient (RCR) | payer MEDICARE, OTHER, SELFPAY | END 2024-02-24 23:59 | disposition home or self-care (01) | LOC: RPT 09:14 | PROVIDERS: ATTENDING PHYSICIAN Orthopaedic Surgery; FAMILY PHYSICIAN Physician Assistant Medical | DX: M75.111 Incomplete rotator cuff tear or rupture of right shoulder, not specified as traumatic (principal); Z73.6 Limitation of activities due to disability; M25.511 Pain in right shoulder | CPT/HCPCS: 97010; 97110; 97112; 97140; 97162 ==

== ENCOUNTER 2024-03-12 07:55 | Outpatient (RCR) | payer MEDICARE, OTHER, SELFPAY | END 2024-03-12 23:59 | disposition home or self-care (01) | LOC: RPT 07:55 | PROVIDERS: ATTENDING PHYSICIAN Orthopaedic Surgery; FAMILY PHYSICIAN Physician Assistant Medical | DX: M75.111 Incomplete rotator cuff tear or rupture of right shoulder, not specified as traumatic (principal); Z73.6 Limitation of activities due to disability; M62.81 Muscle weakness (generalized) | CPT/HCPCS: 97010; 97110; 97140 ==

== ENCOUNTER → 2024-06-15 11:02 | Outpatient (REF) | payer MEDICARE, OTHER, SELFPAY | LOC: HWWDC 11:02 | PROVIDERS: ATTENDING PHYSICIAN Obstetrics & Gynecology; FAMILY PHYSICIAN Internal Medicine | DX: Z12.31 Encounter for screening mammogram for malignant neoplasm of breast (principal) | CPT/HCPCS: 77063; 77067 ==

== ENCOUNTER → 2024-06-24 09:32 | Outpatient (REF) | payer MEDICARE, OTHER, SELFPAY | LOC: WDC 09:32 | PROVIDERS: ATTENDING PHYSICIAN Obstetrics & Gynecology; FAMILY PHYSICIAN Internal Medicine | DX: R92.8 Other abnormal and inconclusive findings on diagnostic imaging of breast (principal) | CPT/HCPCS: 77065 ==

== ENCOUNTER → 2024-07-03 14:57 | Outpatient (REF) | payer MEDICARE, OTHER, SELFPAY | LOC: HWRAD 14:57 | PROVIDERS: ATTENDING PHYSICIAN Obstetrics & Gynecology; FAMILY PHYSICIAN Internal Medicine | DX: Z78.0 Asymptomatic menopausal state (principal) | CPT/HCPCS: 77080 ==

== ENCOUNTER → 2024-12-29 13:54 | Outpatient (REF) | payer MEDICARE, OTHER, SELFPAY | LOC: HWWDC 13:54 | PROVIDERS: ATTENDING PHYSICIAN Obstetrics & Gynecology; FAMILY PHYSICIAN Internal Medicine | DX: R92.8 Other abnormal and inconclusive findings on diagnostic imaging of breast (principal) | CPT/HCPCS: 77061; 77065 ==

== ENCOUNTER → 2025-05-26 13:50 | Outpatient (REF) | payer MEDICARE, OTHER, SELFPAY | LOC: HWRAD 13:50 | PROVIDERS: ATTENDING PHYSICIAN Obstetrics & Gynecology; FAMILY PHYSICIAN Internal Medicine | DX: R10.21 Pelvic and perineal pain right side (principal) | CPT/HCPCS: 76830; 76856 ==